=== PATIENT | female | born 1965 | race Caucasian/White ===

== ENCOUNTER 2017-10-16 10:08 | Emergency (ER) | payer MEDICAID ==
[2017-10-16] MEDS ORDERED: METHYLPREDNISOLONE PF 125MG/VIAL IVP ONE (10:33)
[2017-10-16] MEDS ORDERED: IPRATROPIUM/ALBUTEROL (0.5MG/3MG) NEB INH ONE (10:33)
--- NOTE | 2017-10-16 10:45 | Emergency Department Record ---
History of Present Illness - General Chief Complaint: Difficulty Breathing Stated Complaint: NABOR Time Seen by Provider: 10/16/17 10:26 Source: Patient Mode of Arrival: Ambulatory Limitations: No limitations - History of Present Illness Initial Comments: The patient is here due to a cough and SOB for one week. She has had some production of sputum but denies any fever, chills, vomiting, diarrhea or DALAL. The patient also denies any CP with the SOB. She does have a hx of COPD issues like this in the past. MD Complaint: Cough, Shortness of breath Onset/Timin -: Week(s) Severity scale (1-10): 6 Quality: Aching Consistency: Constant Improves With: Nothing Worsens With: Nothing Known History Of: COPD Context: Recent URI Associated Symptoms: Cough Treatments Prior to Arrival: None - Related Data Home Oxygen Therapy: No Home Medications Medication Instructions Recorded Confirmed Last Taken Albuterol Sulfate [Proair Hfa] 1 - 2 puff IH .EVERY 4-6 HOURS PRN 10/16/1710/1610/15/17 Beclomethasone Dipropionate [Qvar 2 puff INH ASDIR 10/16/17 10/16/17 10/15/17 40Mcg/100 Actuat Inhaler] Budesonide/Formoterol Fumarate 10.2 gm IH ASDIR 10/16/17 10/16/17 10/15/17 [Symbicort 160-4.5 Mcg Inhaler] Ergocalciferol (Vitamin D2) 50,000 unit PO WEEKLY 10/16/17 10/16/17 10/15/17 [Vitamin D2] Ferrous Sulfate [Iron] 25 mg PO DAILY 10/16/17 10/16/17 10/15/17 Previous Rx's Medication Instructions Recorded Cephalexin [Keflex] 500 mg PO QID #28 cap 10/16/17 Prednisone [Prednisone 20Mg] 40 mg PO DAILY #8 tab 10/16/17 Allergies Allergy/AdvReac Type Severity Reaction Status Date / Time No Known Drug Allergies Allergy Unknown Verified 10/16/17 10:11 [NO KNOWN DRUG ALLERGIES] Travel Screening - Travel/Exposure Within Last 30 Days Have you traveled within the last 30 days?: No - Travel/Exposure Within Last Year Have you traveled outside the [place] in the last year?: No - Additonal Travel Details Have you been exposed to anyone with a communicable illness?: No - Travel Symptoms Symptom Screening: None Review of Systems Constitutional: Reports: Malaise. Denies: Chills, Fever Eyes: Denies: Eye discharge ENT: Reports: Congestion Respiratory: Reports: Cough, Dyspnea. Denies: Hemoptysis, Stridor, Wheezes Past Medical History - SOCIAL HISTORY Smoking Status: Current every day smoker Alcohol Use: None Drug Use: None - RESPIRATORY Hx Respiratory Disorders: Yes Hx Bronchitis: Yes Hx COPD: Yes - CARDIOVASCULAR Hx Cardio Disorders: No - NEURO Hx Neuro Disorders: No - GI Hx GI Disorders: Yes Hx Abdominal Pain: Yes Hx GI Bleed: Yes Hx Reflux: Yes Hx Irritable Bowel: Yes Hx Obstructive Bowel: Yes Hx Rectal Bleeding: Yes Hx Ulcer: Yes Hx Wt Loss/Wt Gain: Yes - Hx Genitourinary Disorders: No - ENDOCRINE Hx Endocrine Disorders: No Hx Diabetes: No Hx Thyroid Disease: No - MUSCULOSKELETAL Hx Musculoskeletal Disorders: Yes Hx Arthritis: Yes - PSYCH Hx Psych Problems: Yes Hx Anxiety: Yes Hx Behavior Problems: Yes Hx Depression: Yes - HEMATOLOGY/ONCOLOGY Hx Hematology/Oncology Disorders: Yes Hx Anemia: Yes Hx Bruising: Yes Family Medical History Any Significant Family History?: Yes Hx Cancer: Brother/Sister Hx Heart Disease: Father Physical Exam - General General Appearance: Alert, Oriented x3, Cooperative, No acute distress - Head Head exam: Atraumatic, Normocephalic, Normal inspection - Eye Eye exam: Normal appearance, PERRL - ENT Throat exam: Normal inspection - Neck Neck exam: Normal inspection, Full ROM. negative: Tenderness - Respiratory Respiratory exam: Decreased breath sounds. negative: Normal lung sounds bilaterally, Accessory muscle use, Rales, Respiratory distress, Rhonchi, Stridor , Wheezes - Cardiovascular Cardiovascular Exam: Regular rate, Normal rhythm, Normal heart sounds - GI/Abdominal GI/Abdominal exam: Soft, Normal bowel sounds. negative: Tenderness - Extremities Extremities exam: Normal inspection, Full ROM, Normal capillary refill. negative: Tenderness Course Vital Signs 10/16/17 10:19 Temperature 97.9 F Pulse Rate 86 Respiratory 20 Rate Blood Pressure 138/108 Pulse Ox 98 - Reevaluation(s) Reevaluation #1: The patient is doing a lot better at this time. Her NABOR is gone and she is resting comfortably. 10/16/17 11:41 Reevaluation #2: The patient is doing OK at this time. Her breathing is back to normal and she denies any CP, NABOR, or SOB. on exam her lungs are clear with no wheezing and good aeration. 10/16/17 12:08 Medical Decision Making - Data Complexity MDM Data: Labs Ordered and/or Reviewed, X-Ray Ordered and/or Reviewed - Lab Data Result diagrams: 10/16/17 11:00 10/16/17 11:00 - Radiology Data Radiology results: Report reviewed (CXR: COPD, no acute changes.) Disposition Disposition: Discharge Clinical Impression: COPD exacerbation Disposition: Home, Self-Care Condition: (2) Stable Instructions: Dyspnea (ED) Additional Instructions: Please continue your regular medicines and take the Keflex as directed along with the Prednisone. Please see your PCP next week for recheck and return to the ER for any worsening symptoms. Prescriptions: Cephalexin [Keflex] 500 mg PO QID #28 cap Prednisone [Prednisone 20Mg] 40 mg PO DAILY #8 tab Forms: Patient Portal Access Time of Disposition: 12:10 Quality - Quality Measures Quality Measures: N/A - Blood Pressure Screening View Details: Yes Does Patient Have Any of the Following: No Blood Pressure Classification: Hypertensive Reading Systolic Measurement: 138 Diastolic Measurement: 108 Screening for High Blood Pressure: < First Hypertensive BP, F/U Documented > [ G8950] First Hypertensive Follow-up Interventions: Referral to alternative/primary care provider.
[2017-10-16 11:06] LABS: BASO % 0.5 % (0-6); EOS % 1.5 % (0-6); GRAN % 63.2 % (47-80); HEMATOCRIT 44.6 % (35.0-47.0); HEMOGLOBIN 14.4 gm/dl (11.6-16.0); LYMPH % 22.5 % (16-45); MEAN CELL VOLUME 74.1 fl (81-97); MEAN CORPUSCULAR HEMOGLOBIN 23.9 pg (27-33); MEAN CORPUSCULAR HGB CONC 32.3 g/dl (32-36); MEAN PLATELET VOLUME 8.8 fl (7.4-10.4); MONO % 12.3 % (0-9); PLATELET COUNT 622 K/uL (130-400); RED BLOOD COUNT 6.02 M/uL (3.80-5.40); WHITE BLOOD COUNT W/O DIFF 7.6 K/uL (4.2-12.2)
[2017-10-16 11:17] LABS: BLOOD UREA NITROGEN 4 mg/dL (6-20); CREATININE 0.4 mg/dL (0.5-0.9); EST GLOMERULAR FILTRATION RATE > 60 mL/min
[2017-10-16 11:18] LABS: TOTAL PROTEIN 7.5 g/dL (6.6-8.7)
[2017-10-16 11:20] LABS: GLUCOSE,RANDOM 100 mg/dL (74-109)
[2017-10-16 11:22] LABS: ALT/SGPT 15 U/L (<33); AST/SGOT 18 U/L (10.0-35.0)
[2017-10-16 11:23] LABS: ALB/GLOB RATIO 1.4 (1.1-1.8); ALBUMIN 4.4 g/dL (4.0-5.0); ALKALINE PHOSPHATASE 87 U/L (35-104)
[2017-10-16 11:27] LABS: RED CELL DISTRIBUTION WIDTH 22.1 % (11.5-14.5)
[2017-10-16 11:46] LABS: URINE APPEARANCE CLEAR; URINE BILIRUBIN SMALL (NEGATIVE); URINE BLOOD NEGATIVE (NEGATIVE); URINE COLOR YELLOW; URINE GLUCOSE (UA) NEGATIVE (NEGATIVE); URINE KETONE TRACE (NEGATIVE); URINE LEUKOCYTE ESTERASE TRACE (NEGATIVE); URINE NITRITE NEGATIVE (NEGATIVE); URINE PROTEIN NEGATIVE (NEGATIVE)
[2017-10-16 12:01] LABS: URINE RBC NONE SEEN (NONE SEEN)
[2017-10-16 12:02] LABS: URINE BACTERIA 1+
--- NOTE | 2017-10-18 08:32 | RADIOLOGY REPORT ---
EXAM: CHEST, TWO VIEWS HISTORY: DIFFICULTY BREATHING. TECHNIQUE: Frontal and lateral views of the chest were performed. FINDINGS: The heart size is normal. The lung are hyperinflated. No infiltrate or pleural effusion. The osseous structures are normal. IMPRESSION: HYPERINFLATED LUNGS. NO ACUTE PROCESS. JOB NUMBER: [id number] MTDD
== END 2017-10-16 12:26 | disposition home or self-care (01) ==
LOC: ER 10:08
DX: J44.1 Chronic obstructive pulmonary disease with (acute) exacerbation (principal); F17.210 Nicotine dependence, cigarettes, uncomplicated
CPT/HCPCS: 71046; 80053; 81001; 85025; 94640; 96374; 99284; J2930

== ENCOUNTER 2018-07-02 18:45 | Inpatient (IN) | payer MEDICAID ==
[2018-07-02] MEDS ORDERED: IPRATROPIUM/ALBUTEROL (0.5MG/3MG) NEB INH ONE (18:59)
[2018-07-02] MEDS ORDERED: 0.9 % SODIUM CHLORIDE 1000ML 1,000 ML IV SCH (19:00)
--- NOTE | 2018-07-02 19:04 | Emergency Department Record ---
History of Present Illness - General Stated Complaint: COUGH/VOMITING/WEAK Time Seen by Provider: 07/02/18 18:51 Source: Patient, Family Mode of Arrival: Wheelchair Limitations: No limitations - History of Present Illness Initial Comments: 53 yo female presents to ED for evaluation of shortness of breath, productive cough symptoms, and increased weakness over the past 1 week. Patient reports a history COPD, but reports recent exposure to numerous individuals with URI symptoms. Patient also report nausea/vomiting symptoms resulting from her cough. Patient also reports a history or Anabelle-en-y procedure 6 years ago resulting in chronic malnutrition. MD Complaint: Shortness of breath Onset/Timin -: Week(s) Severity: Moderate Consistency: Constant Improves With: Nothing Worsens With: Coughing Known History Of: COPD Context: Recent URI Associated Symptoms: Nausea/vomiting Treatments Prior to Arrival: None - Related Data Home Oxygen Therapy: No Allergies Allergy/AdvReac Type Severity Reaction Status Date / Time No Known Drug Allergies Allergy Unknown Verified 10/16/17 10:11 [NO KNOWN DRUG ALLERGIES] Review of Systems Constitutional: Reports: Malaise, Weakness. Denies: Chills, Fever, Night sweats Eyes: Denies: Eye discharge, Eye pain ENT: Reports: Congestion. Denies: Ear pain, Epistaxis Respiratory: Reports: Cough, Dyspnea Cardiovascular: Reports: Dyspnea on exertion. Denies: Chest pain Endocrine: Reports: Fatigue. Denies: Heat or cold intolerance Gastrointestinal: Reports: Nausea, Vomiting. Denies: Abdominal pain Genitourinary: Denies: Incontinence, Retention Musculoskeletal: Denies: Arthralgia, Back pain Skin: Denies: Bruising, Change in color Neurological: Denies: Abnormal gait, Confusion, Headache, Seizure Psychiatric: Denies: Anxiety Hematological/Lymphatic: Denies: Anemia, Blood Clots Past Medical History - SOCIAL HISTORY Smoking Status: Current every day smoker Drug Use: None - RESPIRATORY Hx Respiratory Disorders: Yes Hx Bronchitis: Yes Hx COPD: Yes - CARDIOVASCULAR Hx Cardio Disorders: No - NEURO Hx Neuro Disorders: No - GI Hx GI Disorders: Yes Hx Abdominal Pain: Yes Hx GI Bleed: Yes Hx Reflux: Yes Hx Irritable Bowel: Yes Hx Obstructive Bowel: Yes Hx Rectal Bleeding: Yes Hx Ulcer: Yes Hx Wt Loss/Wt Gain: Yes - Hx Genitourinary Disorders: No - ENDOCRINE Hx Endocrine Disorders: No Hx Diabetes: No Hx Thyroid Disease: No - MUSCULOSKELETAL Hx Musculoskeletal Disorders: Yes Hx Arthritis: Yes - PSYCH Hx Psych Problems: Yes Hx Anxiety: Yes Hx Behavior Problems: Yes Hx Depression: Yes - HEMATOLOGY/ONCOLOGY Hx Hematology/Oncology Disorders: Yes Hx Anemia: Yes Hx Bruising: Yes Family Medical History Hx Cancer: Brother/Sister Hx Heart Disease: Father Physical Exam - General General Appearance: Alert, Oriented x3, Cooperative, Moderate distress, Other ( Cachetic appearing) Limitations: No limitations - Head Head exam: Atraumatic, Normocephalic, Normal inspection Head exam detail: negative: Abrasion, Contusion, Posada's sign, General tenderness, Hematoma, Laceration - Eye Eye exam: Normal appearance. negative: Conjunctival injection, Periorbital swelling, Periorbital tenderness, Scleral icterus - ENT Ear exam: negative: Auricular hematoma, Auricular trauma Nasal Exam: negative: Active bleeding, Discharge, Dried blood, Foreign body Mouth exam: negative: Drooling, Laceration, Muffled voice, Tongue elevation - Neck Neck exam: Normal inspection. negative: Meningismus, Tenderness - Respiratory Respiratory exam: Decreased breath sounds. negative: Rales, Respiratory distress, Rhonchi, Stridor - Cardiovascular Cardiovascular Exam: Normal rhythm, Normal heart sounds, Tachycardia - GI/Abdominal GI/Abdominal exam: Soft. negative: Rebound, Rigid, Tenderness - Rectal Rectal exam: Deferred - exam: Deferred - Extremities Extremities exam: Normal inspection. negative: Calf tenderness, Pedal edema, Tenderness - Back Back exam: Denies: CVA tenderness (R), CVA tenderness (L) - Neurological Neurological exam: Alert, Oriented X3 - Psychiatric Psychiatric exam: Normal affect, Normal mood - Skin Skin exam: Normal color. negative: Abrasion Type of lesion: negative: abrasion Course - Reevaluation(s) Reevaluation #1: 07/02/18 19:29 EKG: Sinus tachycardia 106 Normal axis, normal intervals No acute ST-T wave changes No acute changes from 11/25 Reevaluation #2: 07/02/18 19:43 Laboratory studies were reviewed: Na 130 Cl 86 CO2 35 Platelets 629. Laboratory studies are otherwise grossly unremarkable for an acute process. Reevaluation #3: 07/02/18 20:23 CXR reviewed and appears negative for an acute process. Patient was updated on all results, reports mild improvement in her NABOR symptoms. Will administer Solumedrol and admit for likely COPD exacerbation with hypoxia. Patient and her SO are in agreement with the plan of care as discussed. Reevaluation #4: 07/02/18 20:29 Case was discussed with Freida Rodríguez, will accept admission at this time. Medical Decision Making - Lab Data Result diagrams: 07/02/18 19:17 07/02/18 19:17 Disposition Disposition: Admit Clinical Impression: COPD (chronic obstructive pulmonary disease) with acute bronchitis, Hypoxia Disposition: Still a Patient at [facility] Decision to Admit: Admit from ER Decision to Admit Date: 07/02/18 Decision to Admit Time: 20:24 Condition: (2) Stable Time of Disposition: 20:24 Quality - Quality Measures Quality Measures: N/A - Blood Pressure Screening Does Patient Have Any of the Following: No Blood Pressure Classification: Hypertensive Reading Systolic Measurement: 122 Diastolic Measurement: 97 Screening for High Blood Pressure: < First Hypertensive BP, F/U Documented > [ G8950] First Hypertensive Follow-up Interventions: Referral to alternative/primary care provider.
[2018-07-02 19:25] LABS: HEMATOCRIT 44.5 % (35.0-47.0); HEMOGLOBIN 14.4 gm/dl (11.6-16.0); MEAN CELL VOLUME 78.5 fl (81-97); MEAN CORPUSCULAR HEMOGLOBIN 25.3 pg (27-33); MEAN CORPUSCULAR HGB CONC 32.4 g/dl (32-36); MEAN PLATELET VOLUME 8.5 fl (7.4-10.4); PLATELET COUNT 629 K/uL (130-400); RED BLOOD COUNT 5.67 M/uL (3.80-5.40)
[2018-07-02 19:35] LABS: INFLUENZA A NEGATIVE (NEGATIVE); INFLUENZA B NEGATIVE (NEGATIVE)
[2018-07-02 19:35] LABS: BLOOD UREA NITROGEN 4 mg/dL (6-20); CREATININE 0.4 mg/dL (0.5-0.9); EST GLOMERULAR FILTRATION RATE > 60 mL/min
[2018-07-02 19:36] LABS: TOTAL PROTEIN 7.5 g/dL (6.6-8.7)
[2018-07-02 19:38] LABS: GLUCOSE,RANDOM 91 mg/dL (74-109)
[2018-07-02 19:40] LABS: ALT/SGPT 16 U/L (<33)
[2018-07-02 19:41] LABS: ALB/GLOB RATIO 0.8 (1.1-1.8); ALBUMIN 3.4 g/dL (4.0-5.0); ALKALINE PHOSPHATASE 163 U/L (35-104); AST/SGOT 39 U/L (10.0-35.0)
[2018-07-02] MEDS ORDERED: METHYLPREDNISOLONE PF 125MG/VIAL IVP ONE (20:22)
[2018-07-02] MEDS ORDERED: TRAMADOL HCL 50 MG TABLET PO SCH (21:25)
[2018-07-02] MEDS ORDERED: GABAPENTIN 300 MG CAPSULE PO SCH (21:25)
[2018-07-02] MEDS ORDERED: 0.9 % SODIUM CHLORIDE 1000ML 1,000 ML IV PRN (21:25)
[2018-07-02] MEDS ORDERED: BECLOMETHASONE DIPROPIONATE INH SCH (21:25)
[2018-07-02] MEDS: IPRATROPIUM/ALBUTEROL (0.5MG/3MG) NEB INH SCH (22:40)
[2018-07-02] MEDS: QUETIAPINE FUMARATE 100 MG TABLET PO SCH (23:23)
[2018-07-02] MEDS: AMITRIPTYLINE 25 MG TABLET PO SCH (23:24)
[2018-07-02] MEDS: RANITIDINE HCL 150 MG TABLET PO SCH (23:24)
[2018-07-02] MEDS: GABAPENTIN 100 MG CAPSULE PO SCH (23:29)
[2018-07-02] MEDS: GABAPENTIN 300 MG CAPSULE PO SCH (23:29)
[2018-07-03] MEDS: IPRATROPIUM/ALBUTEROL (0.5MG/3MG) NEB INH SCH ×5 (06:08→21:40)
[2018-07-03] MEDS: PANTOPRAZOLE SODIUM 40 MG TABLET PO SCH ×2 (07:12→16:39)
[2018-07-03] MEDS: GABAPENTIN 100 MG CAPSULE PO SCH ×4 (07:13→21:59)
[2018-07-03] MEDS: GABAPENTIN 300 MG CAPSULE PO SCH ×4 (07:13→21:58)
[2018-07-03] MEDS: ALBUTEROL SULFATE (0.083%) 2.5 MG/3 ML NEB INH PRN (08:41)
[2018-07-03] MEDS ORDERED: AZITHROMYCIN 500 MG TABLET PO ONE (10:01)
[2018-07-03 10:21] LABS: HEMATOCRIT 38.4 % (35.0-47.0); HEMOGLOBIN 12.4 gm/dl (11.6-16.0); MEAN CELL VOLUME 79.8 fl (81-97); MEAN CORPUSCULAR HEMOGLOBIN 25.8 pg (27-33); MEAN CORPUSCULAR HGB CONC 32.3 g/dl (32-36); MEAN PLATELET VOLUME 8.7 fl (7.4-10.4); PLATELET COUNT 576 K/uL (130-400); RED BLOOD COUNT 4.81 M/uL (3.80-5.40); RED CELL DISTRIBUTION WIDTH 19.2 % (11.5-14.5); WHITE BLOOD COUNT W/O DIFF 5.9 K/uL (4.2-12.2)
[2018-07-03 10:33] LABS: ALB/GLOB RATIO 0.8 (1.1-1.8); ALBUMIN 2.8 g/dL (4.0-5.0); ALKALINE PHOSPHATASE 136 U/L (35-104); ALT/SGPT 12 U/L (<33); AST/SGOT 14 U/L (10.0-35.0); BLOOD UREA NITROGEN 4 mg/dL (6-20); CREATININE 0.3 mg/dL (0.5-0.9); EST GLOMERULAR FILTRATION RATE > 60 mL/min; GLUCOSE,RANDOM 169 mg/dL (74-109); TOTAL PROTEIN 6.1 g/dL (6.6-8.7)
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
[2018-07-03] MEDS: GUAIFENESIN 1,200 MG TABLET PO SCH ×2 (11:04→21:52)
[2018-07-03] MEDS: RANITIDINE HCL 150 MG TABLET PO SCH ×2 (11:04→21:54)
[2018-07-03] MEDS: METHYLPREDNISOLONE PF 125MG/VIAL IVP SCH (11:05)
[2018-07-03] MEDS: TRAMADOL HCL 50 MG TABLET PO SCH ×2 (12:17→21:53)
[2018-07-03] MEDS: QUETIAPINE FUMARATE 100 MG TABLET PO SCH ×2 (12:20→21:52)
[2018-07-03] MEDS ORDERED: TRAMADOL HCL 50 MG TABLET PO ONE (16:23)
[2018-07-03 16:35] LABS: URINE APPEARANCE CLEAR; URINE BILIRUBIN NEGATIVE (NEGATIVE); URINE BLOOD NEGATIVE (NEGATIVE); URINE COLOR YELLOW; URINE GLUCOSE (UA) NEGATIVE (NEGATIVE); URINE KETONE NEGATIVE (NEGATIVE); URINE LEUKOCYTE ESTERASE NEGATIVE (NEGATIVE); URINE NITRITE NEGATIVE (NEGATIVE); URINE PROTEIN NEGATIVE (NEGATIVE)
[2018-07-03] MEDS: AMITRIPTYLINE 25 MG TABLET PO SCH (21:54)
[2018-07-03] MEDS: ENOXAPARIN 40 MG/0.4 ML SYR SQ SCH (21:55)
[2018-07-04] MEDS: ALBUTEROL SULFATE (0.083%) 2.5 MG/3 ML NEB INH PRN (04:09)
[2018-07-04] MEDS: IPRATROPIUM/ALBUTEROL (0.5MG/3MG) NEB INH SCH ×5 (05:53→21:57)
[2018-07-04] MEDS ORDERED: BREO (FLUTICASONE/VILANTEROL) 200MCG/25MCG INHALER INH SCH (06:00)
[2018-07-04] MEDS: GABAPENTIN 100 MG CAPSULE PO SCH ×3 (06:34→21:34)
[2018-07-04] MEDS: PANTOPRAZOLE SODIUM 40 MG TABLET PO SCH ×2 (06:35→16:29)
[2018-07-04] MEDS: GABAPENTIN 300 MG CAPSULE PO SCH ×3 (06:35→21:34)
[2018-07-04 06:38] LABS: HEMATOCRIT 38.2 % (35.0-47.0); MEAN CELL VOLUME 80.1 fl (81-97); MEAN CORPUSCULAR HEMOGLOBIN 25.2 pg (27-33); MEAN CORPUSCULAR HGB CONC 31.4 g/dl (32-36); MEAN PLATELET VOLUME 8.3 fl (7.4-10.4); PLATELET COUNT 595 K/uL (130-400); RED BLOOD COUNT 4.77 M/uL (3.80-5.40); RED CELL DISTRIBUTION WIDTH 19.4 % (11.5-14.5); WHITE BLOOD COUNT W/O DIFF 5.2 K/uL (4.2-12.2)
[2018-07-04 06:52] LABS: ALB/GLOB RATIO 0.9 (1.1-1.8); ALBUMIN 2.8 g/dL (4.0-5.0); ALKALINE PHOSPHATASE 117 U/L (35-104); ALT/SGPT 12 U/L (<33); AST/SGOT 13 U/L (10.0-35.0); BLOOD UREA NITROGEN 5 mg/dL (6-20); CREATININE 0.3 mg/dL (0.5-0.9); EST GLOMERULAR FILTRATION RATE > 60 mL/min; GLUCOSE,RANDOM 94 mg/dL (74-109); TOTAL PROTEIN 5.9 g/dL (6.6-8.7)
[2018-07-04 07:03] LABS: THYROID STIMULATING HORMONE 1.81 uIU/mL (0.270-4.20)
--- NOTE | 2018-07-04 07:38 | CT SCAN REPORT ---
EXAM: CT OF THE CHEST WITHOUT AND WITH CONTRAST HISTORY: COUGH AND DYSPNEA. NODULE SEEN WITHIN THE RIGHT CARDIOPHRENIC ANGLE ON RECENT CHEST RADIOGRAPH. TECHNIQUE: Routine CT images of the chest were obtained both before and after the intravenous administration of contrast. The amount and type of contrast is noted in the medial record. Comparison: Chest radiograph 07/02/18. FINDINGS: Calcifications are present within the anterior aspect of both the right and left lobe of the thyroid. The heart is not enlarged. No pericardial effusion. The aorta and pulmonary arteries appear unremarkable. No mediastinal or hilar lymph node enlargement. The lungs demonstrate severe emphysema. There is no correlative CT finding to the mass in the right cardiophrenic angle on recent radiograph. This probably represented artifact from vertebral body osteophyte and adjacent atelectasis or scar. There is a 10 x 10 x 7 mm nodule within the left upper lobe with central cavitation. This could relate to post inflammatory type changes though would recommend follow-up CT of the chest in three months. This is best seen on series 7 image 41 and series 606 image 67. More posteriorly within the left upper lobe is a second 6 mm nodule on series 7 image 46. Other small nodules are seen within the left lower lobe measuring up to 6 mm which also may be post inflammatory. There are tree-in-bud type nodules within the right lower lobe probably bronchiolitis. Note is made of peribronchial thickening compatible with bronchitis. The visualized upper abdomen demonstrates a small flash filled hemangioma within the left lobe of the liver. Previous gastric bypass surgery. IMPRESSION: 1. NO CLEAR CORRELATE TO QUESTIONED FINDING WITHIN THE RIGHT CARDIOPHRENIC ANGLE ON RECENT RADIOGRAPH. 2. THERE ARE MULTIPLE PULMONARY NODULES WHICH MAY RELATE TO POST INFECTIOUS OR INFLAMMATORY CHANGE, THE LARGEST OF WHICH MEASURES APPROXIMATELY 10 X 10 X 7 MM WITHIN THE LEFT UPPER LOBE AND DEMONSTRATES AREAS OF CAVITATION. RECOMMEND FOLLOW-UP CT CHEST IN THREE MONTHS. 3. SEVERE PULMONARY EMPHYSEMA. 4. COARSE CALCIFICATIONS WITHIN THE ANTERIOR ASPECT OF BOTH THE RIGHT AND LEFT LOBES OF THE THYROID. JOB NUMBER: [id number] MTDD
[2018-07-04] MEDS: QUETIAPINE FUMARATE 100 MG TABLET PO SCH ×2 (09:47→21:36)
[2018-07-04] MEDS: AZITHROMYCIN 250 MG TABLET PO SCH (09:54)
[2018-07-04] MEDS: GUAIFENESIN 1,200 MG TABLET PO SCH ×2 (09:54→21:35)
[2018-07-04] MEDS: RANITIDINE HCL 150 MG TABLET PO SCH ×2 (09:54→21:36)
[2018-07-04] MEDS: TRAMADOL HCL 50 MG TABLET PO SCH ×2 (09:55→21:36)
[2018-07-04] MEDS: METHYLPREDNISOLONE PF 125MG/VIAL IVP SCH (09:57)
--- NOTE | 2018-07-04 15:27 | Physician Progress Note ---
Subjective - Date Date of Physician Progress Note: 07/04/18 (07/04/18: Pt. continues to have mild respiratory distress- remains on 2L NC. Chest CT yesterday demonstrated multiple small nodules that likely represent post-inflammatory changes. Incidental findings of several coarse calcifications on anterior lobes of thyroid and flash-filled hemangioma of upper lobe of liver. Recommend repeat CT in 3 months. ) Objective - Vital Signs Vital Signs: Vital Signs - Last 24 Hrs Temp Pulse Pulse Resp BP BP Pulse Ox 07/04/18 15:09 97.7 F 144/71 07/04/18 13:44 101 H 18 96 07/04/18 09:33 97.7 F 84 24 144/71 99 07/04/18 09:09 117 H 20 92 L 07/04/18 09:02 120 H 20 90 L 07/04/18 08:50 80 18 07/04/18 05:00 97.7 F 80 18 113/78 100 07/04/18 04:10 107 H 18 96 07/03/18 21:42 96 H 20 105 H 07/03/18 21:00 97.7 F 89 20 114/65 96 07/03/18 18:03 115 H 20 95 07/03/18 15:22 98.2 F 115/79 - General General Appearance: Alert, Oriented x3, Cooperative, Mild distress, Moderate distress, Other (Cachetic appearing) Limitations: No limitations - Head Head exam: Atraumatic, Normocephalic, Normal inspection Head exam detail: negative: Abrasion, Contusion, Posada's sign, General tenderness, Hematoma, Laceration - Eye Eye exam: Normal appearance. negative: Conjunctival injection, Periorbital swelling, Periorbital tenderness, Scleral icterus - ENT Ear exam: negative: Auricular hematoma, Auricular trauma Nasal Exam: negative: Active bleeding, Discharge, Dried blood, Foreign body Mouth exam: negative: Drooling, Laceration, Muffled voice, Tongue elevation - Neck Neck exam: Normal inspection. negative: Meningismus, Tenderness - Respiratory Respiratory exam: Accessory muscle use, Decreased breath sounds, Rhonchi. negative: Rales, Respiratory distress, Stridor - Cardiovascular Cardiovascular Exam: Normal rhythm, Normal heart sounds, Tachycardia - GI/Abdominal GI/Abdominal exam: Soft. negative: Rebound, Rigid, Tenderness - Rectal Rectal exam: Deferred - exam: Deferred - Extremities Extremities exam: Normal inspection. negative: Calf tenderness, Pedal edema, Tenderness - Back Back exam: Denies: CVA tenderness (R), CVA tenderness (L) - Neurological Neurological exam: Alert, Oriented X3 - Psychiatric Psychiatric exam: Normal affect, Normal mood - Skin Skin exam: Normal color. negative: Abrasion Type of lesion: negative: abrasion Assessment and Plan - Assessment and Plan (1) COPD (chronic obstructive pulmonary disease) with acute bronchitis Current Visit: Yes Status: Acute Base Code: J44.0 - CHRONIC OBSTRUCTIVE PULMON DISEASE W ACUTE LOWER RESP INFCT; J20.9 - ACUTE BRONCHITIS, UNSPECIFIED Comment: 07/04/18: -Hx of COPD/emphysema, chronic emphysema changes demonstrated on CXR in ED -IV steroids changed to prednisone 20mg bid today, duo nebs q4h -Sputum culture obtained 07/03- pending -Continue mucinex 1200mg bid and zithromax 250mg today for 4 days -Chest CT demonstrated multiple small nodules (likely post-inflammatory), incidental findings of multiple small coarse calcifications of thyroid and flash -filled hemangioma of liver (2) Soft tissue mass Current Visit: Yes Status: Acute Base Code: M79.9 - SOFT TISSUE DISORDER, UNSPECIFIED Comment: 07/04/18: -Soft tissue density seen on chest XR in right cardiophrenic angle region -Chest CT demonstrated that area of concern was likely either artifact for scar tissue (3) At risk for deep venous thrombosis Current Visit: Yes Status: Acute Base Code: Z91.89 - OTH PERSONAL RISK FACTORS, NOT ELSEWHERE CLASSIFIED Comment: 07/04/18: -40mg lovenox qhs daily for DVT prophylaxis (4) Full code status Current Visit: Yes Status: Acute Base Code: Z78.9 - OTHER SPECIFIED HEALTH STATUS Comment: 07/04/18: -Pt. is a full code Results - Labs Result Diagrams: 07/04/18 06:25 07/04/18 06:25 Labs Last 24 Hours: Laboratory Results - last 24 hr 07/03/18 07/04/18 07/04/18 16:15 06:25 06:25 WBC 5.2 RBC 4.77 Hgb 12.0 Hct 38.2 MCV 80.1 L MCH 25.2 L MCHC 31.4 L RDW 19.4 H Plt Count 595 H MPV 8.3 Neutrophils % 50.0 Band Neutrophils % 8.0 H Eosinophils % Not Reportable Basophils % Not Reportable Lymphocytes 16.0 Monocytes 26.0 H Basophils 0.0 Eosinophil Count 0.0 Sodium 139 Potassium 4.5 Chloride 95 L Carbon Dioxide 36.0 H Anion Gap 8.0 BUN 5 L Creatinine 0.3 L Estimated GFR > 60 Random Glucose 94 Calcium 8.7 Total Bilirubin 0.20 AST 13 ALT 12 Alkaline Phosphatase 117 H Total Protein 5.9 L Albumin 2.8 L Globulin 3.1 Albumin/Globulin Ratio 0.9 L TSH 1.81 Urine Color Yellow Urine Appearance Clear Urine pH 7.0 Ur Specific [place] 1.010 Urine Protein Negative Urine Glucose (UA) Negative Urine Ketones Negative Urine Blood Negative Urine Nitrite Negative Urine Bilirubin Negative Urine Urobilinogen 1.0 Ur Leukocyte Esterase Negative DVT/PE Assessment - Risk for VTE Risk for VTE: No Risk Level: Low Risk Assessment Date: 07/03/18 Risk Assessment Time: 10:36 VTE Orders Placed or Will Be Placed: Yes - Active Medicaitons Current Medications: Current Medications Albuterol Sulfate () 2.5 mg INH RESP.Q2H PRN PRN Reason: DIFFICULTY IN BREATHING Last Admin: 07/04/18 04:09 Dose: 2.5 mg Albuterol/Ipratropium (Duoneb) 3 ml INH RESP.Q4H.[facility] Last Admin: 07/04/18 13:43 Dose: 3 ml Amitriptyline HCl (Elavil) 100 mg PO QHS [facility] Last Admin: 07/03/18 21:54 Dose: 25 mg Azithromycin (Zithromax) 250 mg PO DAILY [facility] Stop: 07/08/18 10:01 Last Admin: 07/04/18 09:54 Dose: 250 mg Enoxaparin Sodium (Lovenox) 40 mg SQ QHS [facility] Last Admin: 07/03/18 21:55 Dose: 40 mg Gabapentin (Neurontin) 200 mg PO Q8H [facility] Last Admin: 07/04/18 13:32 Dose: 200 mg Gabapentin (Neurontin) 600 mg PO Q8H [facility] Last Admin: 07/04/18 13:32 Dose: 600 mg Guaifenesin (Mucinex) 1,200 mg PO BID [facility] Last Admin: 07/04/18 09:54 Dose: 1,200 mg Pantoprazole Sodium (Protonix) 40 mg PO BIDAC [facility] Last Admin: 07/04/18 06:35 Dose: 40 mg Prednisone (Prednisone 20mg) 20 mg PO BIDWM [facility] Quetiapine Fumarate (Seroquel) 100 mg PO QHS [facility] Ranitidine HCl (Zantac) 150 mg PO BID [facility] Last Admin: 07/04/18 09:54 Dose: 150 mg Tramadol HCl (Ultram) 50 mg PO BID [facility] Last Admin: 07/04/18 09:55 Dose: 50 mg AMI Plan - Labs Result Diagrams: 07/04/18 06:25 07/04/18 06:25
[2018-07-04] MEDS: AMITRIPTYLINE 25 MG TABLET PO SCH (21:34)
[2018-07-04] MEDS: ENOXAPARIN 40 MG/0.4 ML SYR SQ SCH (21:46)
--- NOTE | 2018-07-05 05:08 | Inpatient Certification ---
Inpatient Certification Admit to inpatient care: Based on my medical assessment, after consideration of patient's risk factors (age, co-morbidities and patient presenting symptoms and acuity), I expect that this patient will remain in the hospital greater than or equal to two midnights and that the services needed warrant inpatient care because: Patient Risk Factors: [Age, comorbidities] Estimated length of stay: [48-96 hours] The patient may reasonably be expected to be discharged or transferred to a hospital within 96 hours after admission to [facility]. Services needed: [Resp treatments, oxygen, lab monitoring, monitoring of vitals] Post hospital care (if known): [] I certify that my determination is in accordance with my understanding of Medicare requirements for reasonable and necessary inpatient services. 07/04/18 05:06
[2018-07-05] MEDS: IPRATROPIUM/ALBUTEROL (0.5MG/3MG) NEB INH SCH ×5 (05:12→22:05)
[2018-07-05] MEDS: PANTOPRAZOLE SODIUM 40 MG TABLET PO SCH ×2 (06:56→17:24)
[2018-07-05] MEDS: GABAPENTIN 300 MG CAPSULE PO SCH ×4 (06:56→22:11)
[2018-07-05] MEDS: GABAPENTIN 100 MG CAPSULE PO SCH ×4 (06:56→22:10)
[2018-07-05] MEDS: PREDNISONE 20 MG TAB PO SCH ×2 (09:12→17:23)
[2018-07-05] MEDS: GUAIFENESIN 1,200 MG TABLET PO SCH ×3 (09:12→22:10)
[2018-07-05] MEDS: TRAMADOL HCL 50 MG TABLET PO SCH ×3 (09:12→22:12)
[2018-07-05] MEDS: RANITIDINE HCL 150 MG TABLET PO SCH ×3 (09:12→22:13)
[2018-07-05] MEDS: AZITHROMYCIN 250 MG TABLET PO SCH (09:12)
[2018-07-05] MEDS ORDERED: BREO (FLUTICASONE/VILANTEROL) 200MCG/25MCG INHALER INH SCH (10:00)
[2018-07-05] MEDS: AMITRIPTYLINE 25 MG TABLET PO SCH ×2 (20:03→22:09)
[2018-07-05] MEDS: QUETIAPINE FUMARATE 100 MG TABLET PO SCH ×2 (20:05→22:11)
[2018-07-05] MEDS: ENOXAPARIN 40 MG/0.4 ML SYR SQ SCH ×2 (20:13→22:10)
[2018-07-06] MEDS: GABAPENTIN 300 MG CAPSULE PO SCH (05:04)
[2018-07-06] MEDS: GABAPENTIN 100 MG CAPSULE PO SCH (05:04)
[2018-07-06] MEDS: IPRATROPIUM/ALBUTEROL (0.5MG/3MG) NEB INH SCH (05:14)
[2018-07-06] MEDS: PANTOPRAZOLE SODIUM 40 MG TABLET PO SCH (06:37)
--- NOTE | 2018-07-06 08:33 | Discharge Note ---
VTE H&P Assessment - Risk for VTE Risk for VTE: No Risk Level: Low Risk Assessment Date: 07/03/18 Risk Assessment Time: 10:36 VTE Orders Placed or Will Be Placed: Yes Discharge Medications - Discharge Medications Prescriptions: Albuterol Sulfate 0.083% [Neb] 2.5 mg INH RESP.Q2H PRN #120 nebulization solution PRN Reason: Difficulty In Breathing Azithromycin [Zithromax] 250 mg PO DAILY #6 tab Ipratropium/Albuterol [Duoneb] 3 ml INH RESP.Q4H.[place] #120 ampul.neb Prednisone [Prednisone 10Mg] 10 mg PO ASDIR #30 tab Home Medications: Ambulatory Orders Amitriptyline HCl [Elavil] 100 mg PO QHS 07/12/14 [Last Taken 10/15/17] Gabapentin [Neurontin] 800 mg PO Q8H 07/12/14 [Last Taken 10/15/17] Omeprazole [Prilosec] 40 mg PO BID 07/12/14 [Last Taken 10/15/17] Ranitidine HCl [Zantac] 150 mg PO BID 07/12/14 [Last Taken 10/15/17] Tramadol HCl [Ultram] 50 mg PO BID 04/29/15 [Last Taken 10/15/17] Albuterol Sulfate [Proair Hfa] 2 puff IH BID 10/16/17 [Last Taken 10/15/17] Ergocalciferol (Vitamin D2) [Vitamin D2] 50,000 unit PO WEEKLY 10/16/17 [Last Taken 10/15/17] Quetiapine Fumarate [Seroquel] 100 mg PO QHS 07/04/18 [Last Taken Unknown] Umeclidinium [place] (Incruse) [Incruse Ellipta] 1 puff IH RESP.DAILY 07/04/18 [ Last Taken Unknown] Albuterol Sulfate 0.083% [Neb] 2.5 mg INH RESP.Q2H PRN #120 nebulization solution 07/06/18 [Last Taken Unknown] Azithromycin [Zithromax] 250 mg PO DAILY #6 tab 07/06/18 [Last Taken Unknown] Ipratropium/Albuterol [Duoneb] 3 ml INH RESP.Q4H.[place] #120 ampul.neb 07/06/18 [ Last Taken Unknown] Prednisone [Prednisone 10Mg] 10 mg PO ASDIR #30 tab 07/06/18 [Last Taken Unknown ] Quetiapine Fumarate [Seroquel] 100 mg PO QHS tablet 07/06/18 [Last Taken Unknown] Discharge Note - Date Date of Discharge Note: 07/06/18 Disposition: Home, Self-Care Condition: (2) Stable Additional Instructions: follow up with primary DrTmoás in [address] Huyen Siu Referrals: HUYEN SIU [Primary Care Provider] - Activity at Discharge: Increase Activity as Tolerated Diet at Discharge: Low Salt Diet
[2018-07-06] MEDS: PREDNISONE 20 MG TAB PO SCH (09:00)
--- NOTE | 2018-07-06 10:11 | Discharge Note ---
VTE H&P Assessment - Risk for VTE Risk for VTE: Yes Risk Level: Moderate Risk Assessment Date: 07/02/18 Risk Assessment Time: 10:36 VTE Orders Placed or Will Be Placed: Yes VTE Reason for No Prophylaxis: Not Indicated Discharge Medications - Discharge Medications Prescriptions: Albuterol Sulfate 0.083% [Neb] 2.5 mg INH RESP.Q2H PRN #120 nebulization solution PRN Reason: Difficulty In Breathing Azithromycin [Zithromax] 250 mg PO DAILY #6 tab Ipratropium/Albuterol [Duoneb] 3 ml INH RESP.Q4H.[place] #120 ampul.neb Levofloxacin [Levaquin Tab] 500 mg PO DAILY #10 tab Prednisone [Prednisone 10Mg] 10 mg PO ASDIR #30 tab Home Medications: Ambulatory Orders Amitriptyline HCl [Elavil] 100 mg PO QHS 07/12/14 [Last Taken 10/15/17] Gabapentin [Neurontin] 800 mg PO Q8H 07/12/14 [Last Taken 10/15/17] Omeprazole [Prilosec] 40 mg PO BID 07/12/14 [Last Taken 10/15/17] Ranitidine HCl [Zantac] 150 mg PO BID 07/12/14 [Last Taken 10/15/17] Tramadol HCl [Ultram] 50 mg PO BID 04/29/15 [Last Taken 10/15/17] Albuterol Sulfate [Proair Hfa] 2 puff IH BID 10/16/17 [Last Taken 10/15/17] Ergocalciferol (Vitamin D2) [Vitamin D2] 50,000 unit PO WEEKLY 10/16/17 [Last Taken 10/15/17] Quetiapine Fumarate [Seroquel] 100 mg PO QHS 07/04/18 [Last Taken Unknown] Umeclidinium [place] (Incruse) [Incruse Ellipta] 1 puff IH RESP.DAILY 07/04/18 [ Last Taken Unknown] Albuterol Sulfate 0.083% [Neb] 2.5 mg INH RESP.Q2H PRN #120 nebulization solution 07/06/18 [Last Taken Unknown] Azithromycin [Zithromax] 250 mg PO DAILY #6 tab 07/06/18 [Last Taken Unknown] Ipratropium/Albuterol [Duoneb] 3 ml INH RESP.Q4H.[place] #120 ampul.neb 07/06/18 [ Last Taken Unknown] Levofloxacin [Levaquin Tab] 500 mg PO DAILY #10 tab 07/06/18 [Last Taken Unknown ] Prednisone [Prednisone 10Mg] 10 mg PO ASDIR #30 tab 07/06/18 [Last Taken Unknown ] Quetiapine Fumarate [Seroquel] 100 mg PO QHS tablet 07/06/18 [Last Taken Unknown] Discharge Note - Date Date of Discharge Note: 07/06/18 Disposition: Home, Self-Care Condition: (2) Stable Instructions: How to Stop Smoking (DC), Cigarette Smoking and Your Health (GEN) , Influenza (DC), Using Oxygen at Home (DC), COPD (Chronic Obstructive Pulmonary Disease) (DC), Hypoxia (GEN), Chronic Lung Disease and Infection Prevention (DC), Nutrition Guidelines for People with COPD (DC) Additional Instructions: Follow up with primary DrTomás in [address] Huyen Siu. Home Oxygen therapy, 2-4L continuous. 2L at rest and 4L with exertion or walking. Prescriptions: Albuterol Sulfate 0.083% [Neb] 2.5 mg INH RESP.Q2H PRN #120 nebulization solution PRN Reason: Difficulty In Breathing Azithromycin [Zithromax] 250 mg PO DAILY #6 tab Ipratropium/Albuterol [Duoneb] 3 ml INH RESP.Q4H.[place] #120 ampul.neb Prednisone [Prednisone 10Mg] 10 mg PO ASDIR #30 tab Referrals: HUYEN SIU [Primary Care Provider] - Activity at Discharge: Increase Activity as Tolerated
--- NOTE | 2018-07-08 08:10 | Discharge Summary ---
DATE: 07/06/2018 DISCHARGE DIAGNOSES: 1. Acute bronchitis. 2. Exacerbation of chronic obstructive pulmonary disease. 3. Hypoxia requiring oxygen on discharge at 2L/min at rest, 4L with exercise. 4. History of gastric bypass and on iron therapy. 5. Gastroesophageal reflux disease. 6. Tobacco use disorder. ATTENDING PHYSICIAN: Sammy Barnes DO REASON FOR HOSPITALIZATION: This 53-year-old female presented to the emergency department for evaluation of shortness of breath, productive cough, increasing weakness over the past week prior to admission. She has had a history of COPD and smokes 1-2 packs of cigarettes a day. She has been around people with an upper respiratory infection. The patient also reports some nausea and vomiting symptoms from her cough. She has had a Anabelle-en-Y procedure 6 years ago and has chronic malnutrition requiring iron therapy to keep her hemoglobin up. Chest x-ray was negative except for some granulomas. CT of the chest was done which shows there are multiple pulmonary nodules which may relate to post-infection inflammatory change, the largest of which measured approximately 10 x 10 x 7 mm within the left upper lobe and demonstrates areas of cavitation. Recommend followup CT chest in 3 months. She has severe pulmonary emphysema, coarse calcifications within the anterior aspect of both the right and left lobes of the thyroid. SIGNIFICANT FINDINGS: CT chest as described above. Chest x-ray showing no acute process. Discharge labs with WBC 5200, hemoglobin 12, potassium 4.5, BUN 5, creatinine 0.3. Urine was negative. Influenza A and B were negative. Initial CBC when she came in the emergency department, white count was 8000, platelet count was high at 629,000 and went down to about 595,000. Neutrophils were 58, bands were 6, and lymphs were 10%. The patient was started on IV Solu-Medrol, azithromycin, breathing treatments of DuoNeb and albuterol, switched over to oral prednisone 20 mg twice a day, and she gradually is improving but still requiring oxygen at a fairly high amount, 2L at rest and 4L with exercise. The patient is doing much better and would like to go home. The respiratory culture is positive for Haemophilus influenzae. Sensitivities are not in the computer. We will find those and discuss antibiotics at that time with the patient. THERAPY PROVIDED AND HOSPITAL COURSE: The patient gradually improved but still requiring oxygen. DISCHARGE INSTRUCTIONS: Follow up with Dr. Huyen Santo in 5-7 days. Use oxygen at 2L/min at rest, 4L with exercise. She is going to be discharged with azithromycin 250 mg for 6 more days, albuterol nebulizers q.2 h. p.r.n. and DuoNeb q.4 h. while awake. Prednisone taper starting at 40 mg a day for 3 days, then 30 mg for 3 days, 20 mg a day for 3 days, then 10 mg for 3 days, 10-mg pills will be prescribed. Continue her home medications of Elavil 100 mg at h.s., Neurontin 800 mg t.i.d., omeprazole 40 mg b.i.d., Zantac 150 mg b.i.d., Ultram 50 mg b.i.d. She could use her ProAir when she is ambulatory and feeling better. Vitamin D2, 50,000 units weekly, Seroquel 100 mg at h.s. She can also use her Incruse inhaler 1 puff daily. ADDENDUM: Her culture came back after she was discharged showing Haemophilus influenzae. It was sensitive to ampicillin. No further testing done. However, the nomogram in [place] shows Haemophilus influenzae is sensitive 100% of the time to Levaquin, so called in a prescription for Levaquin 500 mg once a day for 10 days and canceled the azithromycin prescription. We will call the patient to inform her of that change. JENI
--- NOTE | 2018-07-08 10:33 | RADIOLOGY REPORT ---
EXAM: CHEST, TWO VIEWS HISTORY: PATIENT HAS SHORTNESS OF BREATH. TECHNIQUE: Two views of the chest are provided along with the comparison study dated 10/16/17. FINDINGS: The cardiac silhouette is within normal limits for size and contour. The lory appear unremarkable. Adjacent to the right cardiophrenic angle, there is a 2.6 cm density. This finding may represent round atelectasis, however, neoplastic etiology cannot be excluded. If there is further clinical concern then a CT scan of the chest can be obtained for further evaluation. No significant pleural effusion or pneumothorax is noted. IMPRESSION: SOFT TISSUE DENSITY IS NOTED WITHIN THE RIGHT CARDIOPHRENIC ANGLE. THIS FINDING MAY REPRESENT ROUND ATELECTASIS, HOWEVER, NEOPLASTIC ETIOLOGY CANNOT BE EXCLUDED. IF THERE IS FURTHER CLINICAL CONCERN THEN A CT SCAN OF THE CHEST CAN BE OBTAINED FOR FURTHER EVALUATION. JOB NUMBER: [id number] MTDD
== END 2018-07-06 09:45 | disposition home or self-care (01) | DRG 192 ==
LOC: ER 18:45 → MEDSURG 21:16 → OBSVTOIN 21:16
PROVIDERS: ADMIT Internal Medicine; ATTEND Internal Medicine
DX: J44.0 Chronic obstructive pulmonary disease with (acute) lower respiratory infection (principal); R09.02 Hypoxemia; R53.81 Other malaise; K21.9 Gastro-esophageal reflux disease without esophagitis; K58.9 Irritable bowel syndrome, unspecified; M19.90 Unspecified osteoarthritis, unspecified site; D64.9 Anemia, unspecified; Z87.891 Personal history of nicotine dependence; Z87.19 Personal history of other diseases of the digestive system; M79.9 Soft tissue disorder, unspecified
CPT/HCPCS: 71046; 71270; 80053; 81003; 84443; 85027; 87070; 87400; 93005; 93010; 94618; 94640; 94760; 94761; 96374; 99223; 99232; 99233; 99239; 99285; J1650; J2930; J7030; J7512; J7613

== ENCOUNTER 2018-07-16 16:19 | Emergency (ER) | payer MEDICAID ==
[2018-07-16] MEDS ORDERED: KETOROLAC 30 MG/ML VIAL IVP ONE (16:55)
[2018-07-16] MEDS ORDERED: 0.9 % SODIUM CHLORIDE 1,000 ML BAG IV ONE (17:08)
[2018-07-16 17:13] LABS: BASO % 0.1 % (0-6); HEMATOCRIT 39.8 % (35.0-47.0); MEAN CELL VOLUME 79.1 fl (81-97); MEAN CORPUSCULAR HEMOGLOBIN 25.8 pg (27-33); MEAN CORPUSCULAR HGB CONC 32.7 g/dl (32-36); MEAN PLATELET VOLUME 8.5 fl (7.4-10.4); MONO % 6.7 % (0-9); PLATELET COUNT 927 K/uL (130-400); RED BLOOD COUNT 5.03 M/uL (3.80-5.40); RED CELL DISTRIBUTION WIDTH 19.4 % (11.5-14.5); WHITE BLOOD COUNT W/O DIFF 12.5 K/uL (4.2-12.2)
[2018-07-16 17:28] LABS: BLOOD UREA NITROGEN 8 mg/dL (6-20); CREATININE 0.3 mg/dL (0.5-0.9); EST GLOMERULAR FILTRATION RATE > 60 mL/min
[2018-07-16 17:29] LABS: TOTAL PROTEIN 6.6 g/dL (6.6-8.7)
[2018-07-16 17:31] LABS: GLUCOSE,RANDOM 90 mg/dL (74-109)
[2018-07-16 17:34] LABS: ALB/GLOB RATIO 1.2 (1.1-1.8); ALBUMIN 3.6 g/dL (4.0-5.0); ALKALINE PHOSPHATASE 96 U/L (35-104); ALT/SGPT 14 U/L (<33); AST/SGOT 18 U/L (10.0-35.0); CREATINE PHOSPHOKINASE 35 U/L (26-192)
[2018-07-16 17:36] LABS: CKMB 2.1 ng/mL (<3.77)
[2018-07-16] MEDS ORDERED: HYDROMORPHONE HCL 2 MG/ML VIAL IVP ONE (18:02)
[2018-07-16] MEDS ORDERED: ONDANSETRON HCL IV 4 MG/2 ML VIAL IVP ONE (18:02)
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
[2018-07-16 18:49] LABS: URINE APPEARANCE CLOUDY; URINE BILIRUBIN NEGATIVE (NEGATIVE); URINE BLOOD NEGATIVE (NEGATIVE); URINE COLOR YELLOW; URINE GLUCOSE (UA) NEGATIVE (NEGATIVE); URINE KETONE NEGATIVE (NEGATIVE); URINE LEUKOCYTE ESTERASE NEGATIVE (NEGATIVE); URINE NITRITE NEGATIVE (NEGATIVE); URINE PROTEIN NEGATIVE (NEGATIVE); URINE UROBILINOGEN 0.2 E.U./dL (0.20 - 1.00)
[2018-07-16 18:54] LABS: AMPHETAMINE SCREEN URINE NOT DETECTED; BARBITURATE SCREEN URINE NOT DETECTED; BENZODIAZEPINE SCREEN URINE NOT DETECTED; COCAINE SCREEN URINE NOT DETECTED; METHADONE SCREEN URINE NOT DETECTED; METHAMPHETAMINE SCREEN NOT DETECTED; OPIATE SCREEN URINE NOT DETECTED; OXYCODONE SCREEN URINE NOT DETECTED; PHENCYCLIDINE SCREEN URINE NOT DETECTED; PROPOXYPHENE SCREEN URINE NOT DETECTED; THC SCREEN URINE NOT DETECTED; TRICYCLIC ANTIDEPRESSANT SCRN DETECTED
--- NOTE | 2018-07-18 10:28 | CT ANGIOGRAM REPORT ---
EXAM: CT ANGIOGRAM OF THE THORAX HISTORY: CHEST PAIN. TECHNIQUE: Helical CT angiogram of the chest was obtained after the administration of intravenous contrast, the type and amount specified in the patient's medical record. Coronal and sagittal maximum intensity projection images were obtained. Comparison: CT of the thorax 07/03/18. FINDINGS: No filling defects are identified in the pulmonary arteries. The aorta has a normal caliber, no dissection. The cardiac chambers have normal size. No pericardial effusion. No mediastinal adenopathy. The lung parenchyma again shows severe emphysematous change. There is interval development of mucous plugging, particularly in the lower lobes. Previously mentioned nodular opacities in the lungs have resolved, consistent with infectious and/or inflammatory nodules. No pleural effusion or pneumothorax. Limited images of the upper abdomen show a mildly dilated common bile duct, incompletely imaged. The proximal common bile duct measures approximately 10 mm , previously measured 8 mm. IMPRESSION: 1. NO EVIDENCE OF PULMONARY EMBOLISM. SEVERE EMPHYSEMATOUS CHANGE WITH INTERVAL MUCOUS PLUGGING OF THE LOWER LOBE BRONCHI. 2. MILD DILATATION OF THE COMMON BILE DUCT, WHICH CAN BE FURTHER EVALUATED WITH GALLBLADDER ULTRASOUND. JOB NUMBER: [id number] [facility]
== END 2018-07-16 19:22 | disposition home or self-care (01) ==
LOC: ER 16:19
DX: M54.6 Pain in thoracic spine (principal); M25.512 Pain in left shoulder; R11.0 Nausea; R07.9 Chest pain, unspecified; J44.9 Chronic obstructive pulmonary disease, unspecified; Z99.81 Dependence on supplemental oxygen; F17.210 Nicotine dependence, cigarettes, uncomplicated
CPT/HCPCS: 99284 ×2; 96374; 96375; 82550; 85651; 82553; 80053; 81003; 80305; 84484; 85379; 85027; 71275; 93005; 93010; Q9967; J1885; J2405; J1170; J7030

== ENCOUNTER 2018-07-17 05:05 | Emergency (ER) | payer MEDICAID ==
[2018-07-17] MEDS ORDERED: ACETAMINOPHEN 1,000 MG/100 ML BTL IVPB ONE (05:12)
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
[2018-07-17] MEDS ORDERED: METHYLPREDNISOLONE PF 125MG/VIAL IVP ONE (05:20)
== END 2018-07-17 05:35 | disposition left against medical advice (07) ==
LOC: ER 05:05
DX: M25.512 Pain in left shoulder (principal); J44.9 Chronic obstructive pulmonary disease, unspecified; Z99.81 Dependence on supplemental oxygen; F17.210 Nicotine dependence, cigarettes, uncomplicated; Z53.21 Procedure and treatment not carried out due to patient leaving prior to being seen by health care provider
CPT/HCPCS: 96374; 99284

== ENCOUNTER 2018-08-05 18:50 | Emergency (ER) | payer MEDICAID ==
[2018-08-05] MEDS ORDERED: KETOROLAC 30 MG/ML VIAL IVP ONE (19:27)
[2018-08-05] MEDS ORDERED: 0.9 % SODIUM CHLORIDE 1,000 ML BAG IV ONE (19:27)
[2018-08-05] MEDS ORDERED: PROMETHAZINE HCL 12.5 MG in 0.9 % SODIUM CHLORIDE 100ML 100 ML IVPB ONE (19:32)
[2018-08-05 19:40] LABS: BASO % 0.6 % (0-6); EOS % 1.8 % (0-6); GRAN % 59.1 % (47-80); HEMATOCRIT 41.8 % (35.0-47.0); HEMOGLOBIN 13.6 gm/dl (11.6-16.0); LYMPH % 27.1 % (16-45); MEAN CELL VOLUME 81.6 fl (81-97); MEAN CORPUSCULAR HEMOGLOBIN 26.6 pg (27-33); MEAN CORPUSCULAR HGB CONC 32.5 g/dl (32-36); MEAN PLATELET VOLUME 8.8 fl (7.4-10.4); MONO % 11.4 % (0-9); PLATELET COUNT 577 K/uL (130-400); RED BLOOD COUNT 5.12 M/uL (3.80-5.40); RED CELL DISTRIBUTION WIDTH 19.4 % (11.5-14.5); WHITE BLOOD COUNT W/O DIFF 8.8 K/uL (4.2-12.2)
[2018-08-05 19:45] LABS: BLOOD UREA NITROGEN 7 mg/dL (6-20)
[2018-08-05 19:46] LABS: CREATININE 0.4 mg/dL (0.5-0.9); EST GLOMERULAR FILTRATION RATE > 60 mL/min; TOTAL PROTEIN 7.4 g/dL (6.6-8.7)
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
[2018-08-05 19:48] LABS: GLUCOSE,RANDOM 53 mg/dL (74-109)
[2018-08-05 19:51] LABS: ALB/GLOB RATIO 1.3 (1.1-1.8); ALBUMIN 4.2 g/dL (4.0-5.0); ALKALINE PHOSPHATASE 106 U/L (35-104); ALT/SGPT 13 U/L (<33); AST/SGOT 21 U/L (10.0-35.0); LIPASE 21 U/L (13-60)
[2018-08-05] MEDS ORDERED: ACETAMINOPHEN 1,000 MG/100 ML BTL IVPB ONE (20:24)
[2018-08-05] MEDS ORDERED: DEXTROSE 50 % IVP 50 ML DISP.SYRIN IVP ONE (20:35)
[2018-08-05] MEDS ORDERED: LORAZEPAM 2 MG/ML VIAL IV ONE (20:42)
--- NOTE | 2018-08-06 14:14 | CT SCAN REPORT ---
DATE: 08/05/2018 at 8:07 p.m. EXAM: EMERGENCY CT SCAN OF THE ABDOMEN AND PELVIS WITHOUT CONTRAST. HISTORY: LEFT-SIDED ABDOMINAL PAIN INTERMITTENTLY FOR MONTHS. PRIOR CHOLECYSTECTOMY, APPENDECTOMY, HYSTERECTOMY. TECHNIQUE: Axial CT scan of the abdomen and pelvis performed without oral or intravenous contrast. COMPARISON: CT of the abdomen and pelvis dated 07/22/2018. FINDINGS: Surgical clips are seen in the gallbladder fossa consistent with cholecystectomy. Uterus not identified consistent with the surgical history. Postoperative changes in the left upper quadrant also seen previously, probably related to prior gastric bypass surgery. No intrarenal calculi identified. No definite hydronephrosis or hydroureter seen. The patient has a very thin body habitus with very little retroperitoneal or pelvic adipose tissue to act as a natural contrast agent, and the ureters are extremely difficult to visualize throughout the retroperitoneum and pelvis. However, no definite ureteral calculus is seen, and no bladder calculus is evident. Evaluation of the bowel and viscera is extremely limited without oral and intravenous contrast in this relatively thin patient. No obvious hepatic mass seen with some tiny, low-attenuation foci in the liver seen on the prior postcontrast study not well seen today without intravenous contrast. No definite splenic, right adrenal, or renal mass seen. The small, low- attenuation mass in the left adrenal well seen on the prior postcontrast study is less obvious on today's examination but is probably present and essentially unchanged. Evaluation for mild retroperitoneal adenopathy cannot be adequately evaluated in this study without oral or intravenous contrast given the lack of retroperitoneal adipose tissue. Evaluation of the bowel is also basically indeterminate. No free intraperitoneal air or definite free intraperitoneal fluid identified. Degenerative disc disease at the lumbosacral interspace and some hypertrophic spurring in the thoracic spine. There is an appearance suggesting that the appendix is still present, but if so it appears of normal caliber containing a small amount of hyperdense material which may just be concentrated enteric content. No definite appendicitis. IMPRESSION: 1. POSTOPERATIVE CHOLECYSTECTOMY AND GASTRIC BYPASS SURGERY. POSTOPERATIVE HYSTERECTOMY. THE PATIENT ALSO INDICATES A HISTORY OF APPENDECTOMY, ALTHOUGH THE APPENDIX IS PROBABLY PRESENT, AND CORRELATION WITH THE SURGICAL HISTORY IS SUGGESTED. 2. NO DEFINITE URINARY TRACT CALCULI OR HYDRONEPHROSIS EVIDENT. 3. EXAMINATION VERY LIMITED BY THE LACK OF ORAL AND INTRAVENOUS CONTRAST IN THIS VERY THIN PATIENT WITH LITTLE RETROPERITONEAL OR MESENTERIC ADIPOSE TISSUE TO ACT A NATURAL CONTRAST AGENT. I BELIEVE THE APPENDIX IS VISUALIZED WITH NO APPENDICITIS EVIDENT. NO FREE AIR OR FREE FLUID IDENTIFIED. JOB NUMBER: [id number] MTDD
== END 2018-08-05 21:05 | disposition home or self-care (01) ==
LOC: ER 18:50
DX: E16.2 Hypoglycemia, unspecified (principal); R10.12 Left upper quadrant pain; J44.9 Chronic obstructive pulmonary disease, unspecified; F17.210 Nicotine dependence, cigarettes, uncomplicated; Z99.81 Dependence on supplemental oxygen; Z98.84 Bariatric surgery status
CPT/HCPCS: 99284 ×2; 96374; 96375; 83690; 85025; 80053; 74176; J1885; J2060; J2550; J7030

== ENCOUNTER 2018-08-06 18:11 | Emergency (ER) | payer MEDICAID ==
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
[2018-08-06 18:36] LABS: BASO % 0.6 % (0-6); EOS % 3.6 % (0-6); GRAN % 64.2 % (47-80); HEMATOCRIT 41.1 % (35.0-47.0); HEMOGLOBIN 13.1 gm/dl (11.6-16.0); LYMPH % 21.9 % (16-45); MEAN CELL VOLUME 82.2 fl (81-97); MEAN CORPUSCULAR HEMOGLOBIN 26.2 pg (27-33); MEAN CORPUSCULAR HGB CONC 31.9 g/dl (32-36); MEAN PLATELET VOLUME 9.1 fl (7.4-10.4); MONO % 9.7 % (0-9); PLATELET COUNT 551 K/uL (130-400); RED CELL DISTRIBUTION WIDTH 19.3 % (11.5-14.5); WHITE BLOOD COUNT W/O DIFF 8.7 K/uL (4.2-12.2)
[2018-08-06 18:45] LABS: BILIRUBIN,TOTAL < 0.20 mg/dL (0.2-1.0); BLOOD UREA NITROGEN 5 mg/dL (6-20); CREATININE 0.4 mg/dL (0.5-0.9); EST GLOMERULAR FILTRATION RATE > 60 mL/min
[2018-08-06 18:46] LABS: TOTAL PROTEIN 7.6 g/dL (6.6-8.7)
[2018-08-06 18:50] LABS: ALB/GLOB RATIO 1.2 (1.1-1.8); ALBUMIN 4.2 g/dL (4.0-5.0); ALT/SGPT 15 U/L (<33); AST/SGOT 24 U/L (10.0-35.0)
[2018-08-06 18:51] LABS: ALKALINE PHOSPHATASE 113 U/L (35-104); LIPASE 21 U/L (13-60)
[2018-08-06 23:02] LABS: GLUCOSE,RANDOM 49 mg/dL (74-109)
== END 2018-08-06 19:11 | disposition home or self-care (01) ==
LOC: ER 18:11
DX: G89.4 Chronic pain syndrome (principal); R10.12 Left upper quadrant pain; R11.0 Nausea; J44.9 Chronic obstructive pulmonary disease, unspecified; F17.210 Nicotine dependence, cigarettes, uncomplicated; Z98.84 Bariatric surgery status; Z99.81 Dependence on supplemental oxygen
CPT/HCPCS: 80053; 83690; 85025; 99283; 99284

== ENCOUNTER 2018-09-05 21:21 | Emergency (ER) | payer MEDICAID ==
[2018-09-05] MEDS ORDERED: ASPIRIN 81 MG CHEWABLE TABLET PO ONE (21:29)
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
[2018-09-05 22:05] LABS: BASO % 0.2 % (0-6); EOS % 1.6 % (0-6); GRAN % 70.6 % (47-80); HEMATOCRIT 39.6 % (35.0-47.0); HEMOGLOBIN 13.1 gm/dl (11.6-16.0); LYMPH % 16.8 % (16-45); MEAN CELL VOLUME 81.6 fl (81-97); MEAN CORPUSCULAR HGB CONC 33.1 g/dl (32-36); MEAN PLATELET VOLUME 8.9 fl (7.4-10.4); MONO % 10.8 % (0-9); PLATELET COUNT 595 K/uL (130-400); RED BLOOD COUNT 4.85 M/uL (3.80-5.40); RED CELL DISTRIBUTION WIDTH 17.7 % (11.5-14.5); WHITE BLOOD COUNT W/O DIFF 12.1 K/uL (4.2-12.2)
[2018-09-05 22:14] LABS: BLOOD UREA NITROGEN 6 mg/dL (6-20); CREATININE 0.3 mg/dL (0.5-0.9); EST GLOMERULAR FILTRATION RATE > 60 mL/min
[2018-09-05 22:15] LABS: TOTAL PROTEIN 7.7 g/dL (6.6-8.7)
[2018-09-05 22:17] LABS: GLUCOSE,RANDOM 103 mg/dL (74-109)
[2018-09-05 22:19] LABS: ALT/SGPT 13 U/L (<33)
[2018-09-05 22:20] LABS: ALB/GLOB RATIO 0.9 (1.1-1.8); ALBUMIN 3.7 g/dL (4.0-5.0); ALKALINE PHOSPHATASE 108 U/L (45-87); AST/SGOT 34 U/L (10.0-35.0); LIPASE 19 U/L (13-60)
[2018-09-05] MEDS ORDERED: KETOROLAC 30 MG/ML VIAL IVP ONE (23:59)
--- NOTE | 2018-09-06 09:04 | RADIOLOGY REPORT ---
EXAM: CHEST, TWO VIEWS HISTORY: LEFT SIDED CHEST PAIN AND ABDOMINAL PAIN. TECHNIQUE: PA and lateral upright views of the chest were obtained. Comparison: 07/02/18. FINDINGS: The heart, mediastinum, and pulmonary vasculature are normal. The lungs are emphysematous. There are no acute infiltrates or effusions. There is no pneumothorax. The bones appear intact. IMPRESSION: 1. STABLE COPD. 2. NO ACUTE CHEST PATHOLOGY. JOB NUMBER: [id number] [facility]
== END 2018-09-06 01:23 | disposition home or self-care (01) ==
LOC: ER 21:21
DX: R07.89 Other chest pain (principal); G89.4 Chronic pain syndrome; R10.12 Left upper quadrant pain; J44.9 Chronic obstructive pulmonary disease, unspecified; F17.210 Nicotine dependence, cigarettes, uncomplicated; Z99.81 Dependence on supplemental oxygen; Z98.84 Bariatric surgery status
CPT/HCPCS: 99284 ×2; 96374; 83690; 84132; 85025; 80053; 84484; 71046; 93005; 93010; J1885

== ENCOUNTER 2018-11-11 20:40 | Emergency (ER) | payer MEDICAID ==
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
== END 2018-11-11 21:19 | disposition home or self-care (01) ==
LOC: ER 20:40
DX: G89.18 Other acute postprocedural pain (principal); R10.9 Unspecified abdominal pain
CPT/HCPCS: 99282; 99283

== ENCOUNTER 2018-11-22 14:44 | Emergency (ER) | payer MEDICAID ==
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
[2018-11-22 16:01] LABS: BASO % 0.9 % (0-6); EOS % 4.3 % (0-6); GRAN % 60.2 % (47-80); HEMATOCRIT 31.1 % (35.0-47.0); HEMOGLOBIN 10.1 gm/dl (11.6-16.0); LYMPH % 19.7 % (16-45); MEAN CELL VOLUME 84.3 fl (81-97); MEAN CORPUSCULAR HGB CONC 32.5 g/dl (32-36); MEAN PLATELET VOLUME 7.8 fl (7.4-10.4); MONO % 14.9 % (0-9); PLATELET COUNT 885 K/uL (130-400); RED BLOOD COUNT 3.69 M/uL (3.80-5.40); RED CELL DISTRIBUTION WIDTH 15.7 % (11.5-14.5); WHITE BLOOD COUNT W/O DIFF 7.7 K/uL (4.2-12.2)
[2018-11-22 16:03] LABS: MEAN CORPUSCULAR HEMOGLOBIN 27.3 pg (27-33)
[2018-11-22 16:12] LABS: BLOOD UREA NITROGEN 9 mg/dL (6-20); CREATININE 0.2 mg/dL (0.5-0.9); EST GLOMERULAR FILTRATION RATE > 60 mL/min
[2018-11-22 16:15] LABS: GLUCOSE,RANDOM 104 mg/dL (74-109)
[2018-11-22 16:18] LABS: CREATINE PHOSPHOKINASE 70 U/L (26-192)
[2018-11-22 16:19] LABS: CKMB 3.7 ng/mL (<3.77)
[2018-11-22] MEDS ORDERED: ACETAMINOPHEN 1,000 MG/100 ML BTL IVPB ONE (16:42)
--- NOTE | 2018-11-24 08:55 | RADIOLOGY REPORT ---
EXAM: CHEST, TWO VIEWS HISTORY: DIFFICULTY BREATHING FOR THE PAST TWO DAYS. RECENT PNEUMONIA. TECHNIQUE: PA and lateral upright views of the chest were obtained. Comparison: 09/05/18. FINDINGS: The heart, mediastinum, and pulmonary vasculature are normal. The lungs are hyperinflated consistent with COPD. There are no acute infiltrates or effusions currently. There is no pneumothorax. Nipple shadows project over the lung bases. The bones are osteopenic, but appear intact. IMPRESSION: 1. STABLE COPD. 2. NO ACUTE CHEST PATHOLOGY. JOB NUMBER: [id number] MTDD
== END 2018-11-22 17:32 | disposition home or self-care (01) ==
LOC: ER 14:44
DX: R07.89 Other chest pain (principal); R06.02 Shortness of breath; J44.9 Chronic obstructive pulmonary disease, unspecified; F17.210 Nicotine dependence, cigarettes, uncomplicated
CPT/HCPCS: 71046; 80048; 82550; 82553; 84484; 85025; 86140; 93005; 93010; 96365; 99284

== ENCOUNTER 2018-12-04 00:15 | Emergency (ER) | payer MEDICAID | END 2018-12-04 00:20 | disposition left against medical advice (07) | LOC: ER 00:15 | DX: R10.9 Unspecified abdominal pain (principal); G89.29 Other chronic pain; Z98.84 Bariatric surgery status; Z53.20 Procedure and treatment not carried out because of patient's decision for unspecified reasons | CPT/HCPCS: 99282; 99283 ==

== ENCOUNTER 2018-12-04 12:28 | Emergency (ER) | payer MEDICAID ==
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
== END 2018-12-04 12:59 | disposition left against medical advice (07) ==
LOC: ER 12:28
DX: R10.9 Unspecified abdominal pain (principal); G89.29 Other chronic pain; Z98.84 Bariatric surgery status

== ENCOUNTER 2018-12-08 09:09 | Emergency (ER) | payer MEDICAID | END 2018-12-08 09:17 | disposition left against medical advice (07) | LOC: ER 09:09 | DX: Z53.20 Procedure and treatment not carried out because of patient's decision for unspecified reasons (principal) ==

== ENCOUNTER 2019-01-30 09:07 | Emergency (ER) | payer MEDICAID ==
[2019-01-30] MEDS ORDERED: METHYLPREDNISOLONE PF 125MG/VIAL IVP ONE (09:18)
[2019-01-30] MEDS ORDERED: IPRATROPIUM/ALBUTEROL (0.5MG/3MG) NEB INH ONE (09:18)
[2019-01-30] MEDS ORDERED: ACETAMINOPHEN 1,000 MG/100 ML BTL IVPB ONE (09:19)
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
[2019-01-30 09:42] LABS: ABSOLUTE NEUTROPHIL COUNT 7.48; BASO % 0.6 % (0-6); EOS % 1.4 % (0-6); GRAN % 70.3 % (47-80); HEMATOCRIT 36.9 % (35.0-47.0); HEMOGLOBIN 11.2 gm/dl (11.6-16.0); MEAN CELL VOLUME 73.8 fl (81-97); MEAN CORPUSCULAR HEMOGLOBIN 22.4 pg (27-33); MEAN CORPUSCULAR HGB CONC 30.4 g/dl (32-36); MEAN PLATELET VOLUME 8.3 fl (7.4-10.4); MONO % 11.7 % (0-9); PLATELET COUNT 788 K/uL (130-400); RED CELL DISTRIBUTION WIDTH 16.8 % (11.5-14.5); WHITE BLOOD COUNT W/O DIFF 10.6 K/uL (4.2-12.2)
[2019-01-30 09:53] LABS: BLOOD UREA NITROGEN 8 mg/dL (6-20); CREATININE 0.3 mg/dL (0.5-0.9); EST GLOMERULAR FILTRATION RATE > 60 mL/min
[2019-01-30 09:54] LABS: TOTAL PROTEIN 7.4 g/dL (6.6-8.7)
[2019-01-30 09:56] LABS: GLUCOSE,RANDOM 113 mg/dL (74-109)
[2019-01-30 09:58] LABS: ALB/GLOB RATIO 1.2 (1.1-1.8); ALBUMIN 4.1 g/dL (4.0-5.0); ALT/SGPT 16 U/L (<33); AST/SGOT 20 U/L (10.0-35.0)
[2019-01-30 09:59] LABS: ALKALINE PHOSPHATASE 101 U/L (35-104)
[2019-01-30] MEDS ORDERED: SUCRALFATE 1 G/10 ML UD PO ONE (10:37)
--- NOTE | 2019-02-01 17:08 | RADIOLOGY REPORT ---
EXAM: CHEST 2 VIEWS HISTORY: CHEST PAIN AND DIFFICULTY IN BREATHING SINCE LAST NIGHT. TECHNIQUE: Upright PA and lateral views of the chest. COMPARISON: Two-view chest radiographic examination dated 11/22/2018. FINDINGS: The heart is not enlarged and the pulmonary vasculature is nondilated. No new lung consolidation. The lungs remain hyperinflated consistent with COPD. No acute osseous abnormality. Mild degenerative changes are scattered throughout the visualized spine. Single nodular opacity projecting at the level of each hemithorax base is consistent with nipple shadows. IMPRESSION: NO RADIOGRAPHIC EVIDENCE OF ACUTE CARDIOPULMONARY DISEASE. HYPERINFLATION OF THE LUNGS REDEMONSTRATED CONSISTENT WITH COPD. JOB NUMBER: [id number] MTDD
--- NOTE | 2019-02-01 18:10 | CT SCAN REPORT ---
EXAM: CT SCAN ABDOMEN/PELVIS W CONTRAST HISTORY: UPPER ABDOMINAL PAIN AFTER FEEDING FOR PAST TWO DAYS. PRIOR GASTRIC SURGERY. TECHNIQUE: Following oral and intravenous contrast administration, helical CT examination of the abdomen and pelvis is performed including delayed images through the kidneys with 100 mL of Omnipaque-300 utilized. COMPARISON: CT abdomen and pelvis without contrast dated 08/05/2018. FINDINGS: There are subtle ill-defined micronodular opacities within the posterior lung bases. This may relate to atelectasis or mild inflammation/infection of small airways. A similar small area is noted within the right middle lobe, new in the interval. Emphysema is suspected in each lung base. No pleural or pericardial effusion. The heart is not enlarged. No new focal abnormality is demonstrated within the liver, spleen, pancreas, kidneys, nor adrenal glands. There is a small left adrenal mass redemonstrated. This measures 1.8 x 2.2 cm. This is not significantly changed in size in the interval, given differences in technique. It is relatively hypodense on the prior examination. An adenoma is the most likely etiology. The gallbladder is surgically absent. Mild prominence of the central biliary tree is identified with the common hepatic duct measuring 8 mm in diameter. No obstructing lesion is identified and this likely relates to a physiologic response to surgical absence of the gallbladder. The splenic vein and portal vein are patent. There is mild to moderate diffuse atherosclerosis without aneurysmal dilatation of the abdominal aorta nor iliac arteries. No definite intraabdominal nor retroperitoneal lymphadenopathy is seen, though evaluation is limited by a paucity of intraabdominal and retroperitoneal fat. Post gastric bypass surgery changes are present. Evaluation of the proximal stomach is limited by lack of distention. A percutaneous gastrostomy tube is present within the distal stomach, new in the interval. No gross bowel dilatation nor bowel wall thickening is seen, though evaluation is somewhat limited by a paucity of intraabdominal and retroperitoneal fat. Diverticulosis of the distal colon is questioned. No definite diverticulitis. No new pelvic mass nor lymphadenopathy. The uterus is surgically absent. No intrinsic urinary bladder abnormality is noted. The appendix is not definitely visualized. No free intraperitoneal air nor free pelvic fluid. No new lytic or blastic bone lesion. There are degenerative changes scattered throughout the visualized spine. IMPRESSION: 1. THE EXAMINATION IS MILDLY LIMITED BY A PAUCITY OF INTRAABDOMINAL AND RETROPERITONEAL FAT. 2. NO DEFINITE CT EVIDENCE OF AN ACUTE INTRAABDOMINAL NOR INTRAPELVIC PROCESS. 3. STATUS POST GASTRIC BYPASS, CHOLECYSTECTOMY, AND HYSTERECTOMY. 4. MILD PROMINENCE OF THE CENTRAL BILIARY TREE, LIKELY DUE TO A PHYSIOLOGIC RESPONSE TO SURGICAL ABSENCE OF THE GALLBLADDER. 5. THE APPENDIX IS NOT VISUALIZED WITH CONFIDENCE. 6. SUBTLE ILL-DEFINED MICRONODULAR OPACITIES WITHIN THE LUNG BASES. THESE MAY RELATE TO ATELECTASIS OR INFLAMMATION/INFECTION OF SMALL AIRWAYS. JOB NUMBER: [id number] [facility]
== END 2019-01-30 12:44 | disposition home or self-care (01) ==
LOC: ER 09:07
DX: G89.29 Other chronic pain (principal); R10.9 Unspecified abdominal pain; J44.9 Chronic obstructive pulmonary disease, unspecified; R20.9 Unspecified disturbances of skin sensation; R00.0 Tachycardia, unspecified; R06.02 Shortness of breath; F17.210 Nicotine dependence, cigarettes, uncomplicated
CPT/HCPCS: 71046; 71275; 74177; 80053; 83690; 85025; 94640; 96365; 96375; 99284; J2930

== ENCOUNTER 2019-02-15 13:44 | Emergency (ER) | payer MEDICAID ==
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
[2019-02-15] MEDS ORDERED: 0.9 % SODIUM CHLORIDE 1,000 ML BAG IV ONE (15:47)
[2019-02-15] MEDS ORDERED: LORAZEPAM 2 MG/ML VIAL IV ONE (15:48)
[2019-02-15] MEDS ORDERED: KETOROLAC 30 MG/ML VIAL IVP ONE ×2 (15:49→15:53)
[2019-02-15 16:43] LABS: HEMOGLOBIN 9.5 gm/dl (11.6-16.0); MEAN CELL VOLUME 73.2 fl (81-97); MEAN CORPUSCULAR HEMOGLOBIN 21.7 pg (27-33); MEAN CORPUSCULAR HGB CONC 29.7 g/dl (32-36); MEAN PLATELET VOLUME 8.4 fl (7.4-10.4); PLATELET COUNT 971 K/uL (130-400); RED BLOOD COUNT 4.37 M/uL (3.80-5.40); RED CELL DISTRIBUTION WIDTH 17.8 % (11.5-14.5); WHITE BLOOD COUNT W/O DIFF 14.6 K/uL (4.2-12.2)
[2019-02-15 16:57] LABS: BLOOD UREA NITROGEN 6 mg/dL (6-20); CREATININE 0.3 mg/dL (0.5-0.9); EST GLOMERULAR FILTRATION RATE > 60 mL/min
[2019-02-15 16:58] LABS: LIPASE 17 U/L (13-60); TOTAL PROTEIN 7.6 g/dL (6.6-8.7)
[2019-02-15 16:59] LABS: HYPOCHROMIA 1+; PLATELET ESTIMATE INCREASED (NORMAL)
[2019-02-15 17:00] LABS: GLUCOSE,RANDOM 109 mg/dL (74-109); POIKILOCYTOSIS 1+
[2019-02-15 17:02] LABS: ALT/SGPT 16 U/L (<33)
[2019-02-15 17:03] LABS: ALBUMIN 4.1 g/dL (4.0-5.0); ALKALINE PHOSPHATASE 107 U/L (35-104); AST/SGOT 22 U/L (10.0-35.0); BILIRUBIN,DIRECT < 0.2 mg/dL (0-0.3)
[2019-02-15] MEDS ORDERED: DICYCLOMINE HCL 10 MG CAPSULE PO ONE (18:07)
[2019-02-15] MEDS ORDERED: AZITHROMYCIN 500 MG TABLET PO ONE (18:07)
--- NOTE | 2019-02-17 11:08 | RADIOLOGY REPORT ---
VIEW: 2 view chest. HISTORY: Cough. COMPARISON: CT thorax and chest x-ray 01/30/2019. FINDINGS: Lung volumes are large, no air space disease. There is a density projecting over the left lower lung, which is the patch on the patient's back. No pleural effusion, no pneumothorax. Cardiac silhouette size and mediastinal contours are within normal limits. Bony structures show mild degenerative changes of the lower lumbar spine. IMPRESSION: Findings of COPD. No acute abnormalities. MTDD
== END 2019-02-15 18:42 | disposition home or self-care (01) ==
LOC: ER 13:44
DX: J44.1 Chronic obstructive pulmonary disease with (acute) exacerbation (principal); J20.9 Acute bronchitis, unspecified; J44.0 Chronic obstructive pulmonary disease with (acute) lower respiratory infection; R09.02 Hypoxemia; R10.12 Left upper quadrant pain; Z99.81 Dependence on supplemental oxygen; Z98.84 Bariatric surgery status
CPT/HCPCS: 99284 ×2; 96374; 96375; 83690; 80076; 80048; 85027; 71046; J1885; J2060; J7030

== ENCOUNTER 2019-02-25 05:55 | Emergency (ER) | payer MEDICAID ==
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
== END 2019-02-25 06:15 | disposition home or self-care (01) ==
LOC: ER 05:55
DX: R10.9 Unspecified abdominal pain (principal); G89.29 Other chronic pain
CPT/HCPCS: 99282

== ENCOUNTER 2019-03-01 16:57 | Emergency (ER) | payer MEDICAID ==
[2019-03-01] MEDS ORDERED: ACETAMINOPHEN 500 MG TABLET PO ONE (17:01)
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
[2019-03-01 17:50] LABS: ABSOLUTE NEUTROPHIL COUNT 5.95; BASO % 0.5 % (0-6); EOS % 3.1 % (0-6); GRAN % 62.5 % (47-80); HEMATOCRIT 29.5 % (35.0-47.0); MEAN PLATELET VOLUME 7.6 fl (7.4-10.4); MONO % 11.9 % (0-9); RED BLOOD COUNT 4.12 M/uL (3.80-5.40); WHITE BLOOD COUNT W/O DIFF 9.5 K/uL (4.2-12.2)
[2019-03-01 18:02] LABS: BILIRUBIN,TOTAL < 0.20 mg/dL (0.2-1.0); BLOOD UREA NITROGEN 5 mg/dL (6-20); CREATININE 0.3 mg/dL (0.5-0.9); EST GLOMERULAR FILTRATION RATE > 60 mL/min
[2019-03-01 18:03] LABS: LIPASE 15 U/L (13-60); TOTAL PROTEIN 6.8 g/dL (6.6-8.7)
[2019-03-01 18:05] LABS: GLUCOSE,RANDOM 74 mg/dL (74-109)
[2019-03-01 18:07] LABS: ALBUMIN 3.7 g/dL (4.0-5.0); ALKALINE PHOSPHATASE 109 U/L (35-104); ALT/SGPT 11 U/L (<33); AST/SGOT 15 U/L (10.0-35.0)
[2019-03-01 18:08] LABS: BILIRUBIN,DIRECT < 0.2 mg/dL (0-0.3)
[2019-03-01 18:14] LABS: MEAN CORPUSCULAR HEMOGLOBIN 21.3 pg (27-33); MEAN CORPUSCULAR HGB CONC 29.8 g/dl (32-36); PLATELET COUNT 990 K/uL (130-400)
[2019-03-01 18:15] LABS: HEMOGLOBIN 8.8 gm/dl (11.6-16.0); MEAN CELL VOLUME 71.6 fl (81-97)
--- NOTE | 2019-03-03 09:14 | RADIOLOGY REPORT ---
EXAM: CHEST, TWO VIEWS HISTORY: LEFT SIDED PAIN. TECHNIQUE: PA and lateral views of the chest were obtained. Comparison: Two view chest 02/15/19. FINDINGS: The heart is not enlarged. The lungs again appear hyperinflated suggesting COPD. There is some mild diffuse prominence of the interstitium similar to before. No definite acute infiltrate is seen and no pleural effusion or pneumothorax identified. Prominent nipple shadow on the left. IMPRESSION: 1. HYPERINFLATION WITH SOME MILDLY DIFFUSELY PROMINENT INTERSTITIAL MARKINGS BEFORE. 2. NO DEFINITE ACUTE ALVEOLAR INFILTRATE SEEN. JOB NUMBER: [id number] [facility]
== END 2019-03-01 18:38 | disposition left against medical advice (07) ==
LOC: ER 16:57
DX: G89.29 Other chronic pain (principal); R10.12 Left upper quadrant pain; J44.9 Chronic obstructive pulmonary disease, unspecified; Z99.81 Dependence on supplemental oxygen
CPT/HCPCS: 71046; 80048; 80076; 83690; 85025; 99283; 99284

== ENCOUNTER 2019-03-02 18:08 | Emergency (ER) | payer MEDICARE, MEDICAID ==
[2019-03-02] MEDS ORDERED: LORAZEPAM 0.5 MG TABLET PO ONE (18:21)
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
[2019-03-02 18:40] LABS: BLOOD UREA NITROGEN 6 mg/dL (6-20); CREATININE 0.3 mg/dL (0.5-0.9); EST GLOMERULAR FILTRATION RATE > 60 mL/min
[2019-03-02 18:43] LABS: GLUCOSE,RANDOM 144 mg/dL (74-109)
[2019-03-02 18:46] LABS: ACETAMINOPHEN 15.6 ug/mL (10.0-30.0); SALICYLATE < 0.3 mg/dL (2.8-20)
[2019-03-02 18:57] LABS: AMPHETAMINE SCREEN URINE NOT DETECTED; BARBITURATE SCREEN URINE NOT DETECTED; BENZODIAZEPINE SCREEN URINE NOT DETECTED; COCAINE SCREEN URINE NOT DETECTED; METHADONE SCREEN URINE NOT DETECTED; METHAMPHETAMINE SCREEN NOT DETECTED; OPIATE SCREEN URINE NOT DETECTED; OXYCODONE SCREEN URINE NOT DETECTED; PHENCYCLIDINE SCREEN URINE NOT DETECTED; PROPOXYPHENE SCREEN URINE NOT DETECTED; THC SCREEN URINE DETECTED; TRICYCLIC ANTIDEPRESSANT SCRN DETECTED
== END 2019-03-02 20:17 ==
LOC: ER 18:08
DX: R45.851 Suicidal ideations (principal); F32.9 Major depressive disorder, single episode, unspecified; J44.9 Chronic obstructive pulmonary disease, unspecified; Z87.891 Personal history of nicotine dependence; Z98.84 Bariatric surgery status; R10.13 Epigastric pain; R10.33 Periumbilical pain; G89.29 Other chronic pain; Z99.81 Dependence on supplemental oxygen
CPT/HCPCS: 80048; 80305; 80320; 80329; 84443

== ENCOUNTER 2019-03-02 21:37 | Emergency (ER) | payer MEDICARE, MEDICAID ==
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
[2019-03-02] MEDS ORDERED: MAGNESIUM HYDROXIDE/AL HYDROX 30 ML, LIDOCAINE VISC 2% 15ML 15 ML PO ONE ×2 (22:26)
[2019-03-02] MEDS ORDERED: QUETIAPINE FUMARATE 100 MG TABLET PO ONE (22:49)
[2019-03-02] MEDS ORDERED: NICOTINE 21 MG/24 HOUR PATCH TD SCH (23:00)
[2019-03-03] MEDS: OLANZAPINE 5MG TABLET PO SCH ×2 (02:16→10:11)
[2019-03-03] MEDS: ALBUTEROL HFA 8 GM INHALER INH SCH ×3 (02:19→13:28)
[2019-03-03] MEDS ORDERED: ACETAMINOPHEN 500 MG TABLET PO ONE (07:37)
[2019-03-03] MEDS: IPRATROPIUM/ALBUTEROL (0.5MG/3MG) NEB INH SCH ×3 (08:50→13:35)
[2019-03-03] MEDS ORDERED: AL HYDROX/MAG HYDROX 30ML UD PO ONE (09:27)
[2019-03-03] MEDS ORDERED: LORAZEPAM 0.5 MG TABLET PO ONE (12:23)
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
[2019-03-03] MEDS ORDERED: AMITRIPTYLINE 25 MG TABLET PO SCH (22:00)
== END 2019-03-03 14:37 ==
LOC: ER 21:37
DX: R45.851 Suicidal ideations (principal); F32.9 Major depressive disorder, single episode, unspecified; G89.29 Other chronic pain; R10.13 Epigastric pain; R10.33 Periumbilical pain; M25.512 Pain in left shoulder; D47.3 Essential (hemorrhagic) thrombocythemia; Z98.84 Bariatric surgery status; J44.9 Chronic obstructive pulmonary disease, unspecified; Z87.891 Personal history of nicotine dependence
CPT/HCPCS: 94640

== ENCOUNTER 2019-03-09 19:34 | Emergency (ER) | payer MEDICAID ==
[2019-03-09] MEDS ORDERED: 0.9 % SODIUM CHLORIDE 1,000 ML BAG IV ONE (19:54)
[2019-03-09] MEDS ORDERED: LORAZEPAM 2 MG/ML VIAL IV ONE ×2 (20:00→20:48)
[2019-03-09 20:05] LABS: ABSOLUTE NEUTROPHIL COUNT 8.38; HEMATOCRIT 28.4 % (35.0-47.0); HEMOGLOBIN 8.6 gm/dl (11.6-16.0); MEAN CORPUSCULAR HGB CONC 30.3 g/dl (32-36); MEAN PLATELET VOLUME 7.8 fl (7.4-10.4); PLATELET COUNT 969 K/uL (130-400); RED BLOOD COUNT 4.06 M/uL (3.80-5.40); RED CELL DISTRIBUTION WIDTH 17.7 % (11.5-14.5); WHITE BLOOD COUNT W/O DIFF 12.4 K/uL (4.2-12.2)
[2019-03-09 20:06] LABS: MEAN CORPUSCULAR HEMOGLOBIN 21.1 pg (27-33)
[2019-03-09 20:18] LABS: BLOOD UREA NITROGEN 4 mg/dL (6-20); CREATININE 0.3 mg/dL (0.5-0.9); EST GLOMERULAR FILTRATION RATE > 60 mL/min
[2019-03-09 20:21] LABS: GLUCOSE,RANDOM 148 mg/dL (74-109)
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
[2019-03-09] MEDS ORDERED: ACETAMINOPHEN 1,000 MG/100 ML BTL IVPB ONE (21:13)
[2019-03-09 21:20] LABS: URINE APPEARANCE CLEAR; URINE BILIRUBIN NEGATIVE (NEGATIVE); URINE BLOOD NEGATIVE (NEGATIVE); URINE COLOR YELLOW; URINE GLUCOSE (UA) NEGATIVE (NEGATIVE); URINE KETONE NEGATIVE (NEGATIVE); URINE LEUKOCYTE ESTERASE SMALL (NEGATIVE); URINE NITRITE NEGATIVE (NEGATIVE); URINE PROTEIN NEGATIVE (NEGATIVE); URINE UROBILINOGEN 0.2 E.U./dL (0.20 - 1.00)
[2019-03-09 21:24] LABS: AMPHETAMINE SCREEN URINE NOT DETECTED; BARBITURATE SCREEN URINE NOT DETECTED; BENZODIAZEPINE SCREEN URINE NOT DETECTED; COCAINE SCREEN URINE NOT DETECTED; METHADONE SCREEN URINE NOT DETECTED; METHAMPHETAMINE SCREEN NOT DETECTED; OPIATE SCREEN URINE NOT DETECTED; OXYCODONE SCREEN URINE NOT DETECTED; PHENCYCLIDINE SCREEN URINE NOT DETECTED; PROPOXYPHENE SCREEN URINE NOT DETECTED; THC SCREEN URINE DETECTED; TRICYCLIC ANTIDEPRESSANT SCRN DETECTED
[2019-03-09 21:27] LABS: URINE BACTERIA NONE SEEN; URINE EPITHELIAL CELLS 0 - 2 (FEW); URINE RBC 0 - 2 (NONE SEEN); URINE WBC 0 - 2 (0-2/hpf)
== END 2019-03-09 22:04 | disposition home or self-care (01) ==
LOC: ER 19:34
DX: R00.0 Tachycardia, unspecified (principal); R10.32 Left lower quadrant pain; F17.210 Nicotine dependence, cigarettes, uncomplicated; J44.9 Chronic obstructive pulmonary disease, unspecified; F41.9 Anxiety disorder, unspecified
CPT/HCPCS: 99284 ×2; 96376; 99281; 96365; 96375; 80048; 81001; 80305; 85027; J2060; J7030

== ENCOUNTER 2019-03-10 09:19 | Emergency (ER) | payer MEDICAID ==
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
[2019-03-10] MEDS ORDERED: DIPHENHYDRAMINE HCL 50 MG/ML VIAL IM ONE (10:11)
[2019-03-10] MEDS ORDERED: MAGNESIUM HYDROXIDE/AL HYDROX 30 ML, LIDOCAINE VISC 2% 15ML 15 ML PO ONE ×2 (10:11)
[2019-03-10] MEDS ORDERED: IPRATROPIUM/ALBUTEROL (0.5MG/3MG) NEB INH ONE (10:17)
== END 2019-03-10 11:15 | disposition home or self-care (01) ==
LOC: ER 09:19
DX: K29.00 Acute gastritis without bleeding (principal); G89.4 Chronic pain syndrome; R10.13 Epigastric pain; F41.9 Anxiety disorder, unspecified; J44.9 Chronic obstructive pulmonary disease, unspecified; F17.210 Nicotine dependence, cigarettes, uncomplicated
CPT/HCPCS: 94640; 96372; 99283; 99284; J1200

== ENCOUNTER 2019-03-10 14:32 | Emergency (ER) | payer MEDICAID | END 2019-03-10 15:39 | disposition left against medical advice (07) | LOC: ER 14:32 | DX: Z53.20 Procedure and treatment not carried out because of patient's decision for unspecified reasons (principal) ==

== ENCOUNTER 2019-03-10 16:36 | Emergency (ER) | payer MEDICAID | END 2019-03-10 17:55 | disposition left against medical advice (07) | LOC: ER 16:36 | DX: Z53.20 Procedure and treatment not carried out because of patient's decision for unspecified reasons (principal) ==

== ENCOUNTER 2019-03-11 08:55 | Emergency (ER) | payer MEDICAID ==
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
[2019-03-11] MEDS ORDERED: SUCRALFATE 1 G/10 ML UD PO ONE (09:22)
== END 2019-03-11 10:35 | disposition home or self-care (01) ==
LOC: ER 08:55
DX: K29.00 Acute gastritis without bleeding (principal); R10.11 Right upper quadrant pain; F17.210 Nicotine dependence, cigarettes, uncomplicated
CPT/HCPCS: 99282

== ENCOUNTER 2019-03-15 07:48 | Emergency (ER) | payer MEDICARE, MEDICAID ==
[2019-03-15] MEDS ORDERED: ONDANSETRON 4 MG ODT TABLET SL ONE ×2 (08:03→08:37)
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
== END 2019-03-15 08:44 | disposition home or self-care (01) ==
LOC: ER 07:48
DX: R11.2 Nausea with vomiting, unspecified (principal); R10.12 Left upper quadrant pain
CPT/HCPCS: 99283

== ENCOUNTER 2019-03-18 07:48 | Emergency (ER) | payer MEDICARE, MEDICAID ==
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
[2019-03-18] MEDS ORDERED: ONDANSETRON 4 MG ODT TABLET SL ONE (08:01)
[2019-03-18] MEDS ORDERED: ACETAMINOPHEN 500 MG TABLET PO ONE (08:45)
== END 2019-03-18 09:15 | disposition home or self-care (01) ==
LOC: ER 07:48
DX: R11.0 Nausea (principal); G89.29 Other chronic pain; R10.9 Unspecified abdominal pain; J44.9 Chronic obstructive pulmonary disease, unspecified; Z87.891 Personal history of nicotine dependence
CPT/HCPCS: 99283; 99284

== ENCOUNTER 2019-03-20 08:08 | Emergency (ER) | payer MEDICARE, MEDICAID ==
[2019-03-20] MEDS ORDERED: ONDANSETRON HCL IV 4 MG/2 ML VIAL IVP ONE (08:41)
[2019-03-20] MEDS ORDERED: MAGNESIUM HYDROXIDE/AL HYDROX 30 ML, LIDOCAINE VISC 2% 15ML 15 ML PO ONE ×2 (08:42)
[2019-03-20] MEDS ORDERED: ONDANSETRON 4 MG ODT TABLET SL ONE (08:52)
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
== END 2019-03-20 09:35 | disposition home or self-care (01) ==
LOC: ER 08:08
DX: K27.9 Peptic ulcer, site unspecified, unspecified as acute or chronic, without hemorrhage or perforation (principal); R10.12 Left upper quadrant pain; J44.9 Chronic obstructive pulmonary disease, unspecified; Z87.891 Personal history of nicotine dependence; Z99.81 Dependence on supplemental oxygen
CPT/HCPCS: 96374; 99284

== ENCOUNTER 2019-03-24 07:43 | Emergency (ER) | payer MEDICARE, MEDICAID ==
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
== END 2019-03-24 08:33 | disposition left against medical advice (07) ==
LOC: ER 07:43
DX: R10.84 Generalized abdominal pain (principal); G89.29 Other chronic pain; K92.1 Melena
CPT/HCPCS: 99283

== ENCOUNTER 2019-03-25 18:23 | Emergency (ER) | payer MEDICARE, MEDICAID ==
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
== END 2019-03-25 18:53 | disposition home or self-care (01) ==
LOC: ER 18:23
DX: R10.12 Left upper quadrant pain (principal); G89.29 Other chronic pain
CPT/HCPCS: 99283

== ENCOUNTER 2019-05-29 09:28 | Emergency (ER) | payer MEDICARE, MEDICAID ==
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
[2019-05-29] MEDS: HYDROCODONE/APAP 5/325MG TABLET PO ONE (10:07)
== END 2019-05-29 10:05 | disposition home or self-care (01) ==
LOC: ER 09:28
DX: T85.528A Displacement of other gastrointestinal prosthetic devices, implants and grafts, initial encounter (principal); Y73.8 Miscellaneous gastroenterology and urology devices associated with adverse incidents, not elsewhere classified; J44.9 Chronic obstructive pulmonary disease, unspecified; Z87.891 Personal history of nicotine dependence; Z99.81 Dependence on supplemental oxygen
CPT/HCPCS: 99284

== ENCOUNTER 2019-05-31 18:36 | Emergency (ER) | payer MEDICARE, MEDICAID ==
[2019-05-31] MEDS ORDERED: HYDROCODONE/APAP 5/325MG TABLET PO ONE (19:08)
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
== END 2019-05-31 19:37 | disposition home or self-care (01) ==
LOC: ER 18:36
DX: T85.528A Displacement of other gastrointestinal prosthetic devices, implants and grafts, initial encounter (principal); Y73.8 Miscellaneous gastroenterology and urology devices associated with adverse incidents, not elsewhere classified; Y92.009 Unspecified place in unspecified non-institutional (private) residence as the place of occurrence of the external cause; Z99.81 Dependence on supplemental oxygen; J44.9 Chronic obstructive pulmonary disease, unspecified; Z87.891 Personal history of nicotine dependence
CPT/HCPCS: 99283

== ENCOUNTER 2019-06-07 09:06 | Inpatient (IN) | payer MEDICARE, MEDICAID ==
[2019-06-07 09:49] LABS: ABSOLUTE NEUTROPHIL COUNT 5.71; BASO % 0.5 % (0-6); EOS % 3.1 % (0-6); GRAN % 69.2 % (47-80); HEMOGLOBIN 13.6 gm/dl (11.6-16.0); LYMPH % 17.9 % (16-45); MEAN CELL VOLUME 79.8 fl (81-97); MEAN CORPUSCULAR HEMOGLOBIN 25.2 pg (27-33); MEAN CORPUSCULAR HGB CONC 31.6 g/dl (32-36); MEAN PLATELET VOLUME 8.8 fl (7.4-10.4); MONO % 9.3 % (0-9); PLATELET COUNT 473 K/uL (130-400); RED BLOOD COUNT 5.39 M/uL (3.80-5.40); RED CELL DISTRIBUTION WIDTH 25.8 % (11.5-14.5); WHITE BLOOD COUNT W/O DIFF 8.3 K/uL (4.2-12.2)
[2019-06-07 09:59] LABS: BLOOD UREA NITROGEN 9 mg/dL (6-20); CREATININE 0.3 mg/dL (0.5-0.9); EST GLOMERULAR FILTRATION RATE > 60 mL/min
[2019-06-07 10:00] LABS: TOTAL PROTEIN 7.2 g/dL (6.6-8.7)
[2019-06-07 10:02] LABS: GLUCOSE,RANDOM 110 mg/dL (74-109)
[2019-06-07 10:04] LABS: ALT/SGPT 23 U/L (<33); AST/SGOT 23 U/L (10.0-35.0)
[2019-06-07 10:05] LABS: ALB/GLOB RATIO 1.7 (1.1-1.8); ALBUMIN 4.5 g/dL (4.0-5.0); ALKALINE PHOSPHATASE 87 U/L (35-104)
--- NOTE | 2019-06-07 10:29 | CT SCAN REPORT ---
EXAMINATION: CT Abdomen and Pelvis without IV Contrast EXAM DATE: 06/07/2019 10:05 AM TECHNIQUE: Standard protocol CT imaging of the abdomen and pelvis was performed without intravenous c ontrast. INDICATION: ap COMPARISON: 01/30/2019 ENCOUNTER: Not applicable CT ABDOMEN AND PELVIS FINDINGS: Lung Bases: Included extent of the lung bases are clear. Hepatobiliary: The liver has a normal size with a smooth surface. The gallbladder is absent. There is no biliary dilatation. Pancreas: No acute abnormality. Limited visibility due to the lack of oral and IV contrast and paucit y of retroperitoneal fat Spleen: The spleen is not enlarged. Adrenals: The adrenal glands are normal. Gastrointestinal: Percutaneous gastrostomy tube. Hiatal hernia. Gastric bypass. Appendix not visualiz ed. Large fecal load Reproductive Organs: The uterus is absent. Lymphatic System: There is no adenopathy within the abdomen or pelvis. Vasculature: Normal caliber abdominal aorta Peritoneum: No free fluid, free air, or inflammation Assessment of the solid organs, soft tissues, and vascular structures is overall limited on noncontra st imaging, IMPRESSION: 1. Limited study due to the lack of oral and IV contrast and paucity of retroperitoneal and peritonea l fat 2. Hiatal hernia 3. Percutaneous gastrostomy tube 4. Gastric bypass 5. Constipation 6. Cholecystectomy and hysterectomy Dictated by: Rush Carias MD on 06/07/2019 10:14 AM. .
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
[2019-06-07] MEDS ORDERED: 0.9 % SODIUM CHLORIDE 1,000 ML BAG IV ONE (13:03)
[2019-06-07] MEDS ORDERED: ALBUTEROL HFA 8 GM INHALER INH PRN (13:03)
[2019-06-07] MEDS ORDERED: ONDANSETRON HCL IV 4 MG/2 ML VIAL IVP PRN (13:03)
[2019-06-07] MEDS ORDERED: FLU VAC QS 2019-20 (INPT, 6MO+) 60MCG/0.5ML IM ONE (13:05)
[2019-06-07] MEDS: ACETAMINOPHEN 325 MG TAB PO PRN ×2 (13:23→19:09)
[2019-06-07] MEDS: SUCRALFATE 1 G/10 ML UD PO SCH ×3 (13:23→22:57)
[2019-06-07] MEDS: DICYCLOMINE HCL 10 MG CAPSULE PO PRN ×2 (13:29→19:08)
[2019-06-07] MEDS ORDERED: Non-Formulary MISC (Sucralfate [Carafate] 1 GM) PO SCH (14:00)
[2019-06-07] MEDS ORDERED: LACTOSE REDUCED FOOD PO SCH (14:00)
[2019-06-07] MEDS ORDERED: FIBER PO SCH (14:00)
[2019-06-07] MEDS ORDERED: DICLOFENAC GEL TOP PRN (14:19)
[2019-06-07] MEDS: IPRATROPIUM/ALBUTEROL (0.5MG/3MG) NEB INH SCH ×3 (14:58→22:15)
[2019-06-07] MEDS ORDERED: ERGOCALCIFEROL (VITAMIN D2) 50,000 UNIT CAPSULE PO ONE (15:00)
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
[2019-06-07] MEDS ORDERED: HYDRALAZINE 20MG/ML VIAL IV PRN (16:44)
[2019-06-07] MEDS: LIDOCAINE 5% PATCH TOP SCH (17:29)
[2019-06-07] MEDS ORDERED: NICOTINE14 MG/24 HOUR PATCH TD SCH (17:30)
[2019-06-07] MEDS ORDERED: OLANZAPINE 5MG TABLET PO SCH (22:00)
[2019-06-07] MEDS ORDERED: PANTOPRAZOLE SODIUM 40 MG TABLET PO SCH (22:00)
[2019-06-07] MEDS ORDERED: ROPINIROLE HCL 1 MG TABLET PO SCH (22:00)
[2019-06-07] MEDS ORDERED: MIRTAZAPINE 15 MG TABLET PO SCH (22:00)
[2019-06-07] MEDS ORDERED: MELATONIN 5 MG TABLET PO SCH (22:00)
[2019-06-07] MEDS: RANITIDINE HCL 150 MG TABLET PO SCH (22:58)
[2019-06-08] MEDS: 0.9 % SODIUM CHLORIDE 1000ML 1,000 ML IV PRN ×2 (02:36→11:30)
[2019-06-08] MEDS: ACETAMINOPHEN 325 MG TAB PO PRN (04:14)
[2019-06-08] MEDS: IPRATROPIUM/ALBUTEROL (0.5MG/3MG) NEB INH SCH ×3 (05:55→14:37)
[2019-06-08 06:32] LABS: ABSOLUTE NEUTROPHIL COUNT 3.38; HEMATOCRIT 37.3 % (35.0-47.0); HEMOGLOBIN 11.6 gm/dl (11.6-16.0); MEAN CELL VOLUME 80.4 fl (81-97); MEAN CORPUSCULAR HGB CONC 31.1 g/dl (32-36); MEAN PLATELET VOLUME 8.9 fl (7.4-10.4); PLATELET COUNT 349 K/uL (130-400); RED BLOOD COUNT 4.64 M/uL (3.80-5.40); RED CELL DISTRIBUTION WIDTH 25.5 % (11.5-14.5); WHITE BLOOD COUNT W/O DIFF 5.7 K/uL (4.2-12.2)
[2019-06-08 06:42] LABS: ANISOCYTOSIS 4+; HYPOCHROMIA 2+
[2019-06-08 06:43] LABS: OVALOCYTES 1+
[2019-06-08 06:47] LABS: BLOOD UREA NITROGEN 7 mg/dL (6-20); CREATININE 0.3 mg/dL (0.5-0.9); EST GLOMERULAR FILTRATION RATE > 60 mL/min; GLUCOSE,RANDOM 102 mg/dL (74-109)
[2019-06-08] MEDS ORDERED: MORPHINE SULFATE 5 MG/ML VIAL IVP ONE ×2 (09:16→13:47)
[2019-06-08] MEDS ORDERED: PANTOPRAZOLE SODIUM IV 40 MG VIAL IVP SCH (09:45)
[2019-06-08] MEDS ORDERED: CITALOPRAM 20 MG TABLET PO SCH (10:00)
[2019-06-08] MEDS: LIDOCAINE 5% PATCH TOP SCH (10:04)
--- NOTE | 2019-06-08 10:10 | Discharge Summary ---
Providers Discharge Summary Date: 06/08/19 Date of admission: 06/07/19 12:34 Expected Date of Discharge: 06/08/19 Attending physician: JOSEPH ALFARO Primary care physician: BONNY OVERTON M.D. Consults: Consult Orders 06/07/19 13:03 Consult NOW Consulting Provider: CAROL EDWARDS Physician Instructions: Reason For Exam: gi blled Physical Exam - Vital Signs Vital Signs: Vital Signs - Last 24 Hrs Temp Pulse Pulse Resp BP BP Pulse Ox 06/08/19 05:56 82 16 06/08/19 03:40 76 16 06/08/19 03:00 98.8 F 78 18 115/70 95 06/07/19 22:17 86 16 06/07/19 21:00 86 16 06/07/19 19:00 99.5 F 103 H 22 118/79 96 06/07/19 18:00 100 H 18 06/07/19 15:03 99.1 F 102 H 16 158/101 99 06/07/19 14:58 95 H 18 06/07/19 14:37 98.8 F 171/99 06/07/19 13:03 98.8 F 106 H 16 171/99 97 06/07/19 12:48 96 H 18 178/100 06/07/19 11:48 99.0 F 97 H 20 183/106 99 - General General Appearance: Alert, Oriented x3, Cooperative, No acute distress, Other (cachectic) Limitations: No limitations - Head Head exam: Normal inspection - Eye Eye exam: Normal appearance, PERRL, EOMI Pupils: Normal accommodation - ENT ENT exam: Normal exam, Mucous membranes moist, Normal external ear exam, Normal orophraynx Ear exam: Normal external inspection. negative: External canal tenderness Nasal Exam: Normal inspection. negative: Discharge, Sinus tenderness Mouth exam: Normal external inspection, Tongue normal Teeth exam: negative: Dental caries Throat exam: negative: Tonsillar erythema, Tonsillar exudate - Neck Neck exam: Normal inspection. negative: Tenderness - Respiratory Respiratory exam: Normal lung sounds bilaterally. negative: Respiratory distress - Cardiovascular Cardiovascular Exam: Normal rhythm, Normal heart sounds, Tachycardia Peripheral Pulses: 2+: Radial (R), Radial (L), Dorsalis Pedis (R), Dorsalis Pedis (L) - GI/Abdominal GI/Abdominal exam: Soft, Normal bowel sounds, Tenderness (mild LUQ abdominal pain with palpation), Other (peg tube in place. contents gastroccult pos) - Rectal Rectal exam: Deferred - exam: Deferred - Extremities Extremities exam: Normal inspection, Full ROM, Normal capillary refill. negative: Tenderness - Back Back exam: Reports: Normal inspection, Full ROM. Denies: Muscle spasm, Rash noted, Tenderness - Neurological Neurological exam: Alert, CN II-XII intact, Normal gait, Oriented X3, Reflexes normal - Psychiatric Psychiatric exam: Normal affect, Normal mood - Skin Skin exam: Dry, Intact, Normal color, Pallor, Warm Hospitalization - Hospitalization Admission Diagnosis: abdominal pain, GI bleed - Problem List/Discharge Diagnosis (1) GI bleed Current Visit: Yes Status: Acute Discharge Diagnosis: GI bleed type/associated pathology: unspecified gastrointestinal hemorrhage type Qualified Code(s): K92.2 - Gastrointestinal hemorrhage, unspecified Base Code: K92.2 - GASTROINTESTINAL HEMORRHAGE, UNSPECIFIED Comment: 06/08/19: -History of GI bleed -Current gastric occult positive -Hgb 13.6 on admission, 11.6 today -Sucralfate 1gm QID -Protonix 80mg BID -NPO -EGD completed today, notes bleeding anastomotic ulcer with vessel present, recommends transfer to [facility] due to previous surgeries by Dr. Larkin for gastric bypass complications (2) Chronic abdominal pain Current Visit: No Status: Acute Base Code: R10.9 - UNSPECIFIED ABDOMINAL PAIN; G89.29 - OTHER CHRONIC PAIN Comment: 06/08/19: -Abd/pelvic CT: hiatal hernia, percutaneous gastrostomy tube, gastric bypass, constipation, cholecystectomy and hysterectomy -Bentyl 20mg q6h prn -Tylenol prn -NS @ 75ml/hr -NPO -GI consult, Dr. Edwards (3) DVT prophylaxis Current Visit: Yes Status: Acute Base Code: Z29.9 - ENCOUNTER FOR PROPHYLACTIC MEASURES, UNSPECIFIED Comment: 06/08/19: -Moderate risk due to hospitalization and comorbidities -Current GI bleed -SCDs while in bed, nursing to encourage ambulation (4) Full code status Current Visit: No Status: Acute Base Code: Z78.9 - OTHER SPECIFIED HEALTH STATUS Comment: 06/08/19: -Patient is a fulll code this admission - Hospitalization Course Disposition: Acute Care Hospital Transfer Hospital Course: 54 year old female patient presented to ED from PCP office for further e valuation of increasing abdominal pain and vomiting coffee-ground emesis. Patient has a known history of a GI bleed with a bleeding ulcer. Patient currently receives Protonoix 80mg BID and Carafate. Patient reports most recently seeing GI 2 months ago. Patient also has a percutaneous gastrostomy tube that was placed due to complications following bariatric surgery. Patient has also had a cholecystectomy and hysterectomy. Patient denies any fever, chills, shortness of breath, chest pain, urinary symptoms, or change in stools. Past medical history includes a cholecystectomy, hysterectomy, bariatric surgery, COPD with home oxygen use, anxiety, bipolar, and chronic abdominal pain. PCP: Dr. Overton ED Course: Hgb 13.6 CBC, CMP unremarkable Abd/pelvic CT: hiatal hernia, percutaneous gastrostomy tube present, history of gastric bypass, constipation, cholecystectomy and hysterectomy 06/07/19: Patient A&O x 4, resting comfortably in bed. Reports increasing abdominal pain and vomiting x 2 days with a moderate amount of coffee-ground emesis 5-6x per day. 06/05/19: Patient A&O x 4, increasing abdominal pain today. EGD completed by Dr. Edwards this morning, anastomotic ulcer with apparent visible vessel noted on exam. Recommends transfer to [facility] for surgical repair due to previous gastric bypass with complications and surgical repair by Dr. Larkin. Transfer to [facility], admission accepted by Surgery, Dr. Borrego. Procedures: Imaging and X-Rays 06/07/19 09:32 ABDOMEN/PELVIS WO CONTRAST [CT] Stat Abnormal Labs: Abnormal Lab Results 06/07/19 06/07/19 06/08/19 Range/Units 09:45 09:45 06:15 MCV 79.8 L 80.4 L (81-97) fl MCH 25.2 L 25.0 L (27-33) pg MCHC 31.6 L 31.1 L (32-36) g/dl RDW 25.8 H 25.5 H (11.5-14.5) % Plt Count 473 H (130-400) K/uL Monocytes % 9.3 H (0-9) % Monocytes 10.0 H (0-9) % Chloride 95 L (98-107) mmol/L Carbon Dioxide 31.0 H (22-29) mmol/L Creatinine 0.3 L (0.5-0.9) mg/dL Random Glucose 110 H (74-109) mg/dL 06/08/19 Range/Units 06:15 MCV (81-97) fl MCH (27-33) pg MCHC (32-36) g/dl RDW (11.5-14.5) % Plt Count (130-400) K/uL Monocytes % (0-9) % Monocytes (0-9) % Chloride (98-107) mmol/L Carbon Dioxide (22-29) mmol/L Creatinine 0.3 L (0.5-0.9) mg/dL Random Glucose (74-109) mg/dL Condition at Discharge: (2) Stable Discharge Medications - Discharge Medications Home Medications: Ambulatory Orders Lactose-Reduced Food/Fiber [Jevity 1.2 Fabrizio Liquid] 237 ml PO QID 11/22/18 [Last Taken 06/07/19] Melatonin 10 mg PO DAILY tab 03/22/19 [Last Taken 06/07/19] Discharge Plan - Discharge Instructions Diet at Discharge: Other (NPO) Quality Measures - Quality Measures Quality Measures: Documentation of Current Medications in Medical Record, Screening for High Blood Pressure and F/U Documented - Current Medications Quality Measure: Measure #130: Documentation of Current Medications Documentation of Current Medications: <Current Medications Documented/Reviewed> [G8427] - Blood Pressure Screening Quality Measure: Screening for High Blood Pressure and Follow-Up Documented Does Patient Have Any of the Following: No Blood Pressure Classification: Hypertensive Reading Systolic Measurement: 171 Diastolic Measurement: 99 Screening for High Blood Pressure: < First Hypertensive BP, F/U Documented > [G8950] First Hypertensive Follow-up Interventions: Referral to alternative/primary care provider. - Elder Abuse Suspicion Index EASI Reference Information: Sierra ESTES, Selam C, Juanita D, Dia M.Development and validation of a tool to assist physicians identification of elder abuse: The Elder Abuse Suspicion Index (EASI ). Journal of Elder Abuse and Neglect, 2008; 20 (3): 276-300.
[2019-06-08] MEDS ORDERED: ACETAMINOPHEN 1,000 MG/100 ML BTL IVPB ONE (11:17)
--- NOTE | 2019-06-08 11:20 | Operative Note ---
OPERATION: ESOPHAGOGASTRODUODENOSCOPY. PREOPERATIVE DIAGNOSIS: Coffee-ground emesis. POSTOPERATIVE DIAGNOSIS: Anastomotic ulcer with apparent visible vessel versus adherent clot. PROCEDURE: After informed consent was obtained from the patient, she was placed in the left lateral decubitus position in the endoscopy suite, sedated and monitored by the department of anesthesia. A well-lubricated [id number] gastroscope was placed in the posterior oropharynx under direct visualization and passed to the proximal esophagus. The endoscope was advanced through the proximal, mid, and distal esophagus. There was slight erythema at the GE junction. There was a small gastric pouch which was quite inflamed, and [id number] ulceration was noted. There was a black pigmented protuberance noted in the base of the ulcer. I was able to traverse the edematous pouch into the gavin limb. The gavin limb appeared unremarkable. There was no fresh or old blood noted. Given the potential risk of bleeding and concern over need for a possible surgical intervention and/or radiologic intervention, I did not perform any instrumentation at this time. I did remove the endoscope. I believe the patient should be transferred to [place] to either [facility] or [facility] at which point further intervention can be entertained. Also, surgical backup and other resources would be available should any complicated medical issues arise. As always, thank you for allowing me to participate in the healthcare of your patients. JENI
--- NOTE | 2019-06-08 11:20 | Medical Records Consult ---
ADDENDUM The patient is high risk with recent bleeding and is considered high risk for upper urgent endoscopy. REASON FOR CONSULTATION: Coffee-ground emesis. HISTORY OF PRESENT ILLNESS: The patient is a 54-year-old woman well known to the [facility] practice who has a history of chronic Xkzi-gx-I-related anastomotic ulcers. This has been a chronic issue for which she has been treated with Protonix twice per day along with Carafate. She continues to smoke cigarettes but denies any aspirin or nonsteroidal agents. She presented with hematemesis marked by evidence of coffee-ground emesis. She denies melena or hematochezia. She denies fever, chills, shortness of breath, or chest pain. She does have a history of chronic abdominal pain and underwent a Anabelle-en-Y for bariatric purposes. She has been seeing Dr. Hui who placed a gastrostomy tube in her excluded stomach. There was apparent contemplation for her to have reversal of her Anabelle-en-Y back to normal anatomy; however, it was felt that attempting weight gain would be preferable. She had been receiving tube feedings as well. PAST MEDICAL HISTORY: COPD, home oxygen use, anxiety, bipolar disorder, chronic abdominal pain, chronic gastric ulceration. PAST SURGICAL HISTORY: Bariatric surgery with a Anabelle-en-Y, hysterectomy, cholecystectomy. REVIEW OF SYSTEMS: Reviewed by nurse practitioner Alesia Soria dated 06/07/2019. No additions other than listed in the History of Present Illness. SOCIAL HISTORY: She is a current smoker. Denies alcohol use. FAMILY HISTORY: Father with lung cancer. There is also cancer in mother, brother, and sister. There is a history of dementia and cardiac disease as well as strokes. MEDICATIONS: 1. Dicyclomine. 2. Celexa. 3. DuoNeb inhaler. 4. Melatonin. 5. Remeron. 6. Zyprexa. 7. Zofran. 8. Protonix 80 mg b.i.d. 9. Diclofenac gel. 10. Zantac. 11. Requip. 12. Carafate slurry and elixir. ALLERGIES: DARVOCET, LYRICA, NALBUPHINE, MELOXICAM, IBUPROFEN, DULOXETINE. PHYSICAL EXAMINATION: VITALS: Temperature 98.8, pulse 82, respiration 16, 2L oxygen saturation 95%, blood pressure 115/70. GENERAL: She is alert, awake, oriented x3. Nontoxic in appearance. She appears to be in no distress. She appears cachectic and older than her stated age. HEENT: Normocephalic and atraumatic. There is some temporal muscle wasting noted. Extraocular movements are intact. Sclerae are anicteric. No conjunctival injection noted. NECK: Supple. Trachea midline. Thyroid was nonpalpable. No obvious lymphadenopathy. HEART: Regular rate and rhythm without murmur. LUNGS: Clear to auscultation although diminished breath sounds diffusely. Normal to percussion. There are no rhonchi, rales, or wheezing. ABDOMEN: Flat, soft. There is tenderness in the epigastrium and left upper quadrant. Feeding tube is present. There is no guarding, rebound, or rigidity noted. EXTREMITIES: No clubbing, cyanosis, or edema. LABORATORY DATA: Admission hemoglobin 13.6, most recent hemoglobin is 11.6 at midnight, white count 5.7, MCV 80.4, platelet count 349. Sodium 138, potassium 4.2, chloride 101, CO2 27, BUN 7, creatinine 0.7. Liver chemistries are normal. Gastroccult was positive. RADIOGRAPHIC DATA: CT of the abdomen from 06/07/2019 demonstrated a hiatal hernia, percutaneous endoscopic gastrostomy, gastric bypass, constipation, cholecystectomy, hysterectomy evidence. IMPRESSION: 1. Upper GI bleed likely from chronic anastomotic ulcer from previous Anabelle-en-Y. 2. Chronic tobacco use and abuse. 3. Chronic obstructive pulmonary disease by history. 4. Bipolar history. 5. Cachexia and protein-calorie malnutrition. RECOMMENDATIONS: We will proceed with upper endoscopy. Would continue PPI therapy. Would monitor hemoglobin serially and provide transfusions as necessary. The patient seems like she would benefit from consideration of reversal of her Anabelle-en-Y pending endoscopy findings but based on history and review of the medical record, this seems like this may be helpful given the chronic nature of the ulceration and the apparent lack of healing. Also shanks to her recovery would be her discontinuation of tobacco use. As always, thank you for allowing me to participate in the healthcare of your patient. JENI
--- NOTE | 2019-06-08 11:20 | Medical Records Consult ---
ADDENDUM The patient is high risk with recent bleeding and is considered high risk for upper urgent endoscopy. MTDD
[2019-06-08] MEDS: SUCRALFATE 1 G/10 ML UD PO SCH ×2 (11:39→13:09)
[2019-06-08] MEDS: RANITIDINE HCL 150 MG TABLET PO SCH (11:40)
[2019-06-08] MEDS ORDERED: LIDOCAINE 2% MDV (20MG/ML) 20ML VIAL IV ONE (14:03)
[2019-06-08] MEDS ORDERED: PROPOFOL 10 MG/ML VIAL IV ONE (14:03)
== END 2019-06-08 15:32 | disposition short-term general hospital (02) | DRG 379 ==
LOC: ER 09:06 → MEDSURG 12:34
PROVIDERS: ADMIT Internal Medicine; ATTEND Internal Medicine
PROC: 0DJ08ZZ Inspection of Upper Intestinal Tract, Via Natural or Artificial Opening Endoscopic (ICD-10-PCS; principal; 2019-06-07)
DX: K92.2 Gastrointestinal hemorrhage, unspecified (principal); K28.4 Chronic or unspecified gastrojejunal ulcer with hemorrhage; R10.13 Epigastric pain; D64.9 Anemia, unspecified; J44.9 Chronic obstructive pulmonary disease, unspecified; Z99.81 Dependence on supplemental oxygen; M19.90 Unspecified osteoarthritis, unspecified site; K21.9 Gastro-esophageal reflux disease without esophagitis; Z90.49 Acquired absence of other specified parts of digestive tract; Z93.1 Gastrostomy status; Z87.19 Personal history of other diseases of the digestive system; Z98.84 Bariatric surgery status; Z23 Encounter for immunization; G89.29 Other chronic pain
CPT/HCPCS: 74176; 80048; 80053; 82271; 85025; 85027; 94760; 94761; 99223; 99239; 99285; A9270; C9113; J2405; J7030

== ENCOUNTER 2019-07-26 06:05 | Emergency (ER) | payer MEDICARE, MEDICAID ==
[2019-07-26] MEDS ORDERED: IPRATROPIUM/ALBUTEROL (0.5MG/3MG) NEB INH ONE (06:07)
[2019-07-26] MEDS ORDERED: ALBUTEROL (0.5% CONCENTRATED) 2.5 MG/0.5 ML VIAL.NEB INH ONE (06:08)
[2019-07-26] MEDS ORDERED: PREDNISONE 20 MG TAB PO ONE (06:08)
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
--- NOTE | 2019-07-26 07:06 | RADIOLOGY REPORT ---
EXAMINATION: Two View Chest Radiographs EXAM DATE: 07/26/2019 6:47 AM TECHNIQUE: Frontal and lateral views INDICATION: cough COMPARISON: None ENCOUNTER: Not applicable FINDINGS: The heart, mediastinum, and pulmonary vasculature are normal. No lung consolidation or pleural effu sions are present. Hyperexpansion of the lungs is consistent with pulmonary emphysema. IMPRESSION: 1. No acute cardiopulmonary abnormality. 2. Pulmonary emphysema. Dictated by: Leonel Sprague MD on 07/26/2019 7:03 AM. .
== END 2019-07-26 07:24 | disposition home or self-care (01) ==
LOC: ER 06:05
DX: J44.1 Chronic obstructive pulmonary disease with (acute) exacerbation (principal); Z99.81 Dependence on supplemental oxygen; I10 Essential (primary) hypertension; F17.210 Nicotine dependence, cigarettes, uncomplicated; K29.00 Acute gastritis without bleeding; R10.10 Upper abdominal pain, unspecified; D64.9 Anemia, unspecified; Z98.84 Bariatric surgery status
CPT/HCPCS: 71046; 80048; 85027; 94640; 96372; 99284; J7512

== ENCOUNTER 2019-07-26 11:26 | Emergency (ER) | payer MEDICARE, MEDICAID ==
[2019-07-26] MEDS ORDERED: MORPHINE SULFATE 5 MG/ML VIAL IVP ONE (11:39)
[2019-07-26] MEDS ORDERED: IPRATROPIUM/ALBUTEROL (0.5MG/3MG) NEB INH ONE (11:40)
[2019-07-26] MEDS ORDERED: MORPHINE SULFATE 5 MG/ML VIAL IM ONE (11:42)
[2019-07-26] MEDS ORDERED: SUCRALFATE 1 G/10 ML UD PO ONE (11:44)
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
[2019-07-26] MEDS ORDERED: LORAZEPAM 2 MG/ML VIAL IM ONE (12:05)
[2019-07-26] MEDS ORDERED: ONDANSETRON 4 MG ODT TABLET SL ONE (12:37)
[2019-07-26 12:39] LABS: HEMATOCRIT 43.1 % (35.0-47.0); HEMOGLOBIN 13.9 gm/dl (11.6-16.0); MEAN CELL VOLUME 88.3 fl (81-97); MEAN CORPUSCULAR HEMOGLOBIN 28.5 pg (27-33); MEAN CORPUSCULAR HGB CONC 32.3 g/dl (32-36); MEAN PLATELET VOLUME 8.2 fl (7.4-10.4); PLATELET COUNT 584 K/uL (130-400); RED BLOOD COUNT 4.88 M/uL (3.80-5.40); RED CELL DISTRIBUTION WIDTH 19.5 % (11.5-14.5); WHITE BLOOD COUNT W/O DIFF 8.7 K/uL (4.2-12.2)
[2019-07-26 12:46] LABS: ANISOCYTOSIS 1+
[2019-07-26 12:52] LABS: BLOOD UREA NITROGEN 3 mg/dL (6-20); CREATININE 0.2 mg/dL (0.5-0.9); EST GLOMERULAR FILTRATION RATE > 60 mL/min
[2019-07-26 12:55] LABS: GLUCOSE,RANDOM 139 mg/dL (74-109)
== END 2019-07-26 13:22 | disposition home or self-care (01) ==
LOC: ER 11:26
DX: K29.00 Acute gastritis without bleeding (principal); J44.1 Chronic obstructive pulmonary disease with (acute) exacerbation; D64.9 Anemia, unspecified; F17.210 Nicotine dependence, cigarettes, uncomplicated; Z98.84 Bariatric surgery status; Z99.81 Dependence on supplemental oxygen
CPT/HCPCS: 80048; 85027; 94640

== ENCOUNTER 2019-07-31 05:37 | Emergency (ER) | payer MEDICARE, MEDICAID ==
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
[2019-07-31 06:17] LABS: HEMATOCRIT 51.2 % (35.0-47.0); MEAN CELL VOLUME 86.9 fl (81-97); MEAN CORPUSCULAR HGB CONC 33.2 g/dl (32-36); MEAN PLATELET VOLUME 8.5 fl (7.4-10.4); PLATELET COUNT 671 K/uL (130-400); RED BLOOD COUNT 5.89 M/uL (3.80-5.40); RED CELL DISTRIBUTION WIDTH 19.2 % (11.5-14.5); WHITE BLOOD COUNT W/O DIFF 16.3 K/uL (4.2-12.2)
[2019-07-31 06:28] LABS: MEAN CORPUSCULAR HEMOGLOBIN 28.8 pg (27-33)
[2019-07-31 06:29] LABS: URINE APPEARANCE CLEAR; URINE BILIRUBIN NEGATIVE (NEGATIVE); URINE BLOOD NEGATIVE (NEGATIVE); URINE COLOR YELLOW; URINE GLUCOSE (UA) NEGATIVE (NEGATIVE); URINE KETONE NEGATIVE (NEGATIVE); URINE LEUKOCYTE ESTERASE NEGATIVE (NEGATIVE); URINE NITRITE NEGATIVE (NEGATIVE); URINE PROTEIN NEGATIVE (NEGATIVE); URINE UROBILINOGEN 0.2 E.U./dL (0.20 - 1.00)
[2019-07-31 06:35] LABS: BLOOD UREA NITROGEN 8 mg/dL (6-20); CREATININE 0.4 mg/dL (0.5-0.9); EST GLOMERULAR FILTRATION RATE > 60 mL/min
[2019-07-31 06:36] LABS: LIPASE 9 U/L (13-60); TOTAL PROTEIN 7.5 g/dL (6.6-8.7)
[2019-07-31 06:38] LABS: GLUCOSE,RANDOM 114 mg/dL (74-109)
[2019-07-31 06:41] LABS: ALB/GLOB RATIO 1.2 (1.1-1.8); ALBUMIN 4.1 g/dL (4.0-5.0); ALKALINE PHOSPHATASE 95 U/L (35-104); ALT/SGPT 31 U/L (<33); AST/SGOT 20 U/L (10.0-35.0)
[2019-07-31 07:05] LABS: ABSOLUTE NEUTROPHIL COUNT 14.63; TOXIC GRANULATION 2+
== END 2019-07-31 07:14 | disposition home or self-care (01) ==
LOC: ER 05:37
DX: R10.10 Upper abdominal pain, unspecified (principal); D50.9 Iron deficiency anemia, unspecified; R79.89 Other specified abnormal findings of blood chemistry; J44.9 Chronic obstructive pulmonary disease, unspecified; F17.210 Nicotine dependence, cigarettes, uncomplicated; Z99.81 Dependence on supplemental oxygen; Z93.1 Gastrostomy status; Z98.84 Bariatric surgery status
CPT/HCPCS: 80053; 81003; 82728; 83550; 83690; 85027; 99283

== ENCOUNTER 2019-08-06 09:44 | Emergency (ER) | payer MEDICARE, MEDICAID ==
[2019-08-06] MEDS: ACETAMINOPHEN 1,000 MG/100 ML BTL IVPB ONE (11:03)
--- NOTE | 2019-08-06 11:03 | CT SCAN REPORT ---
EXAMINATION: CT Abdomen and Pelvis without IV Contrast EXAM DATE: 08/06/2019 10:47 AM TECHNIQUE: Standard protocol CT imaging of the abdomen and pelvis was performed without intravenous c ontrast. INDICATION: r ap. Right-sided abdominal pain with feeding tube was removed 1 month ago. History of ga stric bypass and bowel obstruction. COMPARISON: 06/07/2019 ENCOUNTER: Not applicable CT ABDOMEN AND PELVIS FINDINGS: Lung Bases: Included extent of the lung bases are clear. Hepatobiliary: The liver has a normal size with a smooth surface. The gallbladder is absent. There is no biliary dilatation. Pancreas: The pancreas is normal. Spleen: The spleen is not enlarged. Adrenals: The adrenal glands are normal. Kidneys, Ureters, & Bladder: Both kidneys have a normal size and morphology. There is no hydronephro sis. No renal calculi are present. Both ureters have a normal course and caliber and the urinary blad darlene a normal morphology and uniform wall thickness. No ureteral or bladder calculi are identified. Gastrointestinal: Postsurgical changes again seen in the epigastric region. The body of the stomach i s J-shaped and mildly distended. This may exert mass effect on the distal stomach. No dilated loops o f small bowel. Small bowel anastomosis noted in the left mid abdomen.The appendix is normal. The larg e bowel is within normal limits. Reproductive Organs: Unremarkable Lymphatic System: There is no adenopathy within the abdomen or pelvis. Vasculature: Normal caliber abdominal aorta mild atherosclerotic calcifications. Peritoneum: No free fluid, free air, or inflammation Abdominal wall & Musculoskeletal: The site of previous feeding tube insertion is seen to the right of midline. No abdominal wall hernia is seen. No abnormal fluid collections. No suspicious bone lesions. Assessment of the solid organs, soft tissues, and vascular structures is overall limited on noncontra st imaging, IMPRESSION: The site of previous feeding tube insertion is seen in the upper abdomen to the right of midline. No abdominal wall hernia or fluid collection is seen. The stomach has a peculiar J-shaped configuration where the anterior stomach may have mass effect on the distal stomach. No small bowel obstruction. No hydronephrosis. Dictated by: Vianca Elliott MD on 08/06/2019 10:47 AM. .
[2019-08-06 11:13] LABS: ABSOLUTE NEUTROPHIL COUNT 4.05; BASO % 0.6 % (0-6); EOS % 8.1 % (0-6); GRAN % 57.5 % (47-80); HEMATOCRIT 45.4 % (35.0-47.0); HEMOGLOBIN 14.4 gm/dl (11.6-16.0); LYMPH % 21.7 % (16-45); MEAN CELL VOLUME 91.5 fl (81-97); MEAN CORPUSCULAR HGB CONC 31.7 g/dl (32-36); MEAN PLATELET VOLUME 8.5 fl (7.4-10.4); MONO % 12.1 % (0-9); PLATELET COUNT 455 K/uL (130-400); RED BLOOD COUNT 4.96 M/uL (3.80-5.40); RED CELL DISTRIBUTION WIDTH 17.1 % (11.5-14.5)
[2019-08-06 11:27] LABS: BLOOD UREA NITROGEN 4 mg/dL (6-20)
[2019-08-06 11:28] LABS: BILIRUBIN,TOTAL < 0.20 mg/dL (0.2-1.0); CREATININE 0.3 mg/dL (0.5-0.9); EST GLOMERULAR FILTRATION RATE > 60 mL/min; TOTAL PROTEIN 7.3 g/dL (6.6-8.7)
[2019-08-06 11:30] LABS: GLUCOSE,RANDOM 118 mg/dL (74-109)
[2019-08-06 11:33] LABS: ALB/GLOB RATIO 1.4 (1.1-1.8); ALBUMIN 4.2 g/dL (4.0-5.0); ALKALINE PHOSPHATASE 92 U/L (35-104); ALT/SGPT 15 U/L (<33); AST/SGOT 23 U/L (10.0-35.0)
--- NOTE | 2019-08-06 11:55 | RADIOLOGY REPORT ---
EXAMINATION: Two View Chest Radiographs EXAM DATE: 08/06/2019 11:45 AM TECHNIQUE: Frontal and lateral views INDICATION: Right abdominal pain COMPARISON: 07/26/2019 ENCOUNTER: Not applicable FINDINGS: No infiltrates. Hyperinflation. Cardiac silhouette is unremarkable. There is spurring in the spine. IMPRESSION: No acute disease. Dictated by: Jason Pacheco MD on 08/06/2019 11:50 AM. .
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
[2019-08-06] MEDS: KETOROLAC 30 MG/ML VIAL IVP ONE (12:00)
[2019-08-06] MEDS: ALBUTEROL SULFATE (0.083%) 2.5 MG/3 ML NEB INH ONE (12:04)
== END 2019-08-06 12:11 | disposition home or self-care (01) ==
LOC: ER 09:44
DX: J44.1 Chronic obstructive pulmonary disease with (acute) exacerbation (principal); R10.9 Unspecified abdominal pain; F17.210 Nicotine dependence, cigarettes, uncomplicated; Z99.81 Dependence on supplemental oxygen
CPT/HCPCS: 71046; 74176; 80053; 85025; 93005; 93010; 94640; 96365; 96375; 99284; J1885; J7613

== ENCOUNTER 2019-08-26 11:16 | Emergency (ER) | payer MEDICARE, MEDICAID ==
[2019-08-26] MEDS ORDERED: KETOROLAC 30 MG/ML VIAL IVP ONE (11:45)
[2019-08-26] MEDS ORDERED: ALBUTEROL SULFATE (0.083%) 2.5 MG/3 ML NEB INH ONE (11:45)
[2019-08-26] MEDS ORDERED: METHYLPREDNISOLONE PF 125MG/VIAL IVP ONE (11:45)
[2019-08-26 11:57] LABS: ABSOLUTE NEUTROPHIL COUNT 5.43; BASO % 0.3 % (0-6); GRAN % 74.6 % (47-80); HEMATOCRIT 42.7 % (35.0-47.0); HEMOGLOBIN 13.6 gm/dl (11.6-16.0); MEAN CELL VOLUME 92.6 fl (81-97); MEAN CORPUSCULAR HEMOGLOBIN 29.5 pg (27-33); MEAN CORPUSCULAR HGB CONC 31.9 g/dl (32-36); MEAN PLATELET VOLUME 8.2 fl (7.4-10.4); MONO % 8.1 % (0-9); PLATELET COUNT 489 K/uL (130-400); RED BLOOD COUNT 4.61 M/uL (3.80-5.40); RED CELL DISTRIBUTION WIDTH 15.2 % (11.5-14.5); WHITE BLOOD COUNT W/O DIFF 7.3 K/uL (4.2-12.2)
[2019-08-26 12:06] LABS: BLOOD UREA NITROGEN 4 mg/dL (6-20); CREATININE 0.3 mg/dL (0.5-0.9); EST GLOMERULAR FILTRATION RATE > 60 mL/min
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
[2019-08-26 12:07] LABS: LIPASE 5 U/L (13-60)
[2019-08-26 12:09] LABS: GLUCOSE,RANDOM 98 mg/dL (74-109)
[2019-08-26 12:11] LABS: ALB/GLOB RATIO 1.5 (1.1-1.8); ALBUMIN 4.2 g/dL (4.0-5.0); ALT/SGPT 15 U/L (<33); AST/SGOT 22 U/L (10.0-35.0)
[2019-08-26 12:12] LABS: ALKALINE PHOSPHATASE 86 U/L (35-104)
--- NOTE | 2019-08-26 12:46 | RADIOLOGY REPORT ---
EXAMINATION: Two View Chest Radiographs EXAM DATE: 08/26/2019 12:19 PM TECHNIQUE: Frontal and lateral views INDICATION: sob COMPARISON: 08/06/2019 ENCOUNTER: Not applicable FINDINGS: The cardiac and mediastinal silhouettes are stable. The lungs are hyperinflated. No focal airspace co nsolidation, pneumothorax or pleural effusion. IMPRESSION: No radiographic evidence of an acute cardiopulmonary abnormality. Dictated by: Charbel Campuzano on 08/26/2019 12:41 PM. .
== END 2019-08-26 13:30 | disposition home or self-care (01) ==
LOC: ER 11:16
DX: J44.1 Chronic obstructive pulmonary disease with (acute) exacerbation (principal); F17.210 Nicotine dependence, cigarettes, uncomplicated; Z99.81 Dependence on supplemental oxygen
CPT/HCPCS: 99284 ×2; 96374; 96375; 83690; 85025; 80053; 71046; 94640; J1885; J2930; J7613

== ENCOUNTER 2019-09-03 07:16 | Emergency (ER) | payer MEDICARE, MEDICAID ==
[2019-09-03] MEDS ORDERED: LORAZEPAM 0.5 MG TABLET PO ONE (07:47)
[2019-09-03] MEDS ORDERED: IPRATROPIUM/ALBUTEROL (0.5MG/3MG) NEB INH ONE (07:47)
[2019-09-03] MEDS ORDERED: METHYLPREDNISOLONE PF 125MG/VIAL IM ONE (07:49)
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
--- NOTE | 2019-09-03 08:32 | RADIOLOGY REPORT ---
EXAMINATION: Two View Chest Radiographs EXAM DATE: 09/03/2019 8:11 AM TECHNIQUE: Frontal and lateral views INDICATION: sob COMPARISON: Chest x-ray from one week prior ENCOUNTER: Not applicable FINDINGS: The heart, mediastinum, and pulmonary vasculature are normal. No lung consolidation or pleural effu sions are present. Severe pulmonary emphysema is again noted. IMPRESSION: 1. No acute cardiopulmonary abnormality. 2. Severe pulmonary emphysema. Dictated by: Leonel Sprague MD on 09/03/2019 8:22 AM. .
== END 2019-09-03 08:54 | disposition home or self-care (01) ==
LOC: ER 07:16
DX: J44.1 Chronic obstructive pulmonary disease with (acute) exacerbation (principal); F17.210 Nicotine dependence, cigarettes, uncomplicated; Z99.81 Dependence on supplemental oxygen
CPT/HCPCS: 71046; 94640; 96372; 99284; J2930

== ENCOUNTER 2019-10-07 15:51 | Emergency (ER) | payer MEDICARE, MEDICAID ==
[2019-10-07] MEDS ORDERED: KETOROLAC 30 MG/ML VIAL IVP ONE (16:43)
[2019-10-07] MEDS ORDERED: 0.9 % SODIUM CHLORIDE 1,000 ML BAG IV ONE (16:43)
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
[2019-10-07] MEDS ORDERED: ALBUTEROL SULFATE (0.083%) 2.5 MG/3 ML NEB INH ONE (16:53)
[2019-10-07 16:57] LABS: ABSOLUTE NEUTROPHIL COUNT 6.51; BASO % 0.5 % (0-6); EOS % 5.3 % (0-6); GRAN % 64.9 % (47-80); HEMATOCRIT 46.7 % (35.0-47.0); HEMOGLOBIN 14.7 gm/dl (11.6-16.0); LYMPH % 19.1 % (16-45); MEAN CELL VOLUME 91.7 fl (81-97); MEAN CORPUSCULAR HEMOGLOBIN 28.9 pg (27-33); MEAN CORPUSCULAR HGB CONC 31.5 g/dl (32-36); MEAN PLATELET VOLUME 8.6 fl (7.4-10.4); MONO % 10.2 % (0-9); PLATELET COUNT 418 K/uL (130-400); RED BLOOD COUNT 5.09 M/uL (3.80-5.40); RED CELL DISTRIBUTION WIDTH 14.5 % (11.5-14.5)
[2019-10-07 17:09] LABS: BILIRUBIN,TOTAL < 0.20 mg/dL (0.2-1.0); BLOOD UREA NITROGEN 9 mg/dL (6-20); CREATININE 0.4 mg/dL (0.5-0.9); EST GLOMERULAR FILTRATION RATE > 60 mL/min; LIPASE 15 U/L (13-60); TOTAL PROTEIN 7.7 g/dL (6.6-8.7)
[2019-10-07 17:11] LABS: GLUCOSE,RANDOM 122 mg/dL (74-109)
[2019-10-07] MEDS ORDERED: DICYCLOMINE HCL 10 MG/ML AMPUL IM ONE (17:11)
[2019-10-07 17:14] LABS: ALB/GLOB RATIO 1.1 (1.1-1.8); ALBUMIN 4.1 g/dL (4.0-5.0); ALKALINE PHOSPHATASE 111 U/L (35-104); ALT/SGPT 11 U/L (<33); AST/SGOT 17 U/L (10.0-35.0)
--- NOTE | 2019-10-07 18:03 | RADIOLOGY REPORT ---
EXAMINATION: Abdomen Single View EXAM DATE: 10/07/2019 5:44 PM TECHNIQUE: Single view INDICATION: ap COMPARISON: AP CT 01/30/2019 ENCOUNTER: Not applicable FINDINGS: Bowel: Nonobstructive bowel gas pattern. Postoperative change left flank. Cholecystectomy. Large feca l load. Abnormal Calcifications: None. Bones: Degenerative change LS-spine Other Findings: None. IMPRESSION: Constipation Dictated by: Rush Carias MD on 10/07/2019 6:00 PM. .
[2019-10-07] MEDS ORDERED: BISACODYL 10 MG SUPP RC ONE (18:05)
== END 2019-10-07 18:14 | disposition home or self-care (01) ==
LOC: ER 15:51
DX: K59.01 Slow transit constipation (principal); J45.21 Mild intermittent asthma with (acute) exacerbation; F17.210 Nicotine dependence, cigarettes, uncomplicated; Z99.81 Dependence on supplemental oxygen
CPT/HCPCS: 74018; 80053; 83605; 83690; 85025; 94640; 96372; 96374; 99284; J1885; J7030; J7613

== ENCOUNTER 2019-10-13 08:58 | Emergency (ER) | payer MEDICARE, MEDICAID ==
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
== END 2019-10-13 09:25 | disposition left against medical advice (07) ==
LOC: ER 08:58
DX: R10.11 Right upper quadrant pain (principal); J44.9 Chronic obstructive pulmonary disease, unspecified; Z87.891 Personal history of nicotine dependence; Z99.81 Dependence on supplemental oxygen; Z53.29 Procedure and treatment not carried out because of patient's decision for other reasons
CPT/HCPCS: 99282